=== PATIENT | female | born 1940 | race Caucasian/White ===

== ENCOUNTER 2020-04-19 14:26 | Inpatient (IN) | payer MEDICARE, OTHER ==
[~2020-04-19] VITALS: Ht 165.1 cm; Wt 61.7 kg
--- NOTE | 2020-04-19 14:26 | NUR ---
BIB FAMILY C/O WEAKNESS, INCREASE CONFUSION X 3 DAYS, TO ER BED 9, HOOKED TO MONITOR, CHANGED TO HOSP GOWN, WARM BLANKET PROVIDED. PATIENT AAO x1. BREATHING EVEN AND UNLABORED. R SIDED WEAKNESS NOTED. AWAITING MD MONROE.
--- NOTE | 2020-04-19 15:14 | NUR ---
DR VILLEGAS AT BEDSIDE
--- NOTE | 2020-04-19 15:25 | NUR ---
CLINICAL FACULTY AT BEDSIDE
[2020-04-19 15:46] LABS: BASOPHILS % (AUTO) 0.2 % (0.0-2.0); EOSINOPHILS % (AUTO) 0.8 % (0.0-6.0); HEMATOCRIT 31 % (33-45); HEMOGLOBIN 10.1 g/dL (11.5-14.8); LYMPHOCYTES # (AUTO) 0.8 /CMM (0.8-4.8); LYMPHOCYTES % (AUTO) 6.7 % (20.0-44.0); MEAN CORPUSCULAR HGB CONC 33 g/dl (31.0-36.0); MEAN CORPUSCULAR VOLUME 96 fL (82-100); MONOCYTES % (AUTO) 8.3 % (2.0-12.0); NEUTROPHILS # (AUTO) 9.7 /CMM (1.8-8.9); PLATELET COUNT (AUTO) 304 /CMM (150-450); RED BLOOD CELL COUNT(AUTO) 3.21 MIL/uL (4.0-5.2); WHITE BLOOD COUNT (AUTO) 11.5 K/uL (4.3-11.0)
[2020-04-19] MEDS ORDERED: LOSA50TA39 PO (15:53)
[2020-04-19] MEDS ORDERED: QUET200T PO (15:53)
[2020-04-19] MEDS ORDERED: MEGE400O5 PO (15:53)
[2020-04-19] MEDS ORDERED: METO25TA3 PO (15:53)
[2020-04-19] MEDS ORDERED: TRAZ-257 PO (15:53)
[2020-04-19] MEDS ORDERED: ESCI10TA PO (15:53)
[2020-04-19] MEDS ORDERED: CICL6.6S5 TP (15:53)
[2020-04-19] MEDS ORDERED: ATOR10TA PO (15:53)
[2020-04-19] MEDS ORDERED: ERGO500014 PO (15:53)
[2020-04-19] MEDS ORDERED: LORA-259 PO (15:53)
[2020-04-19] MEDS ORDERED: MEMA10TA PO (15:53)
[2020-04-19] MEDS ORDERED: CLON0.1T PO (15:53)
[2020-04-19] MEDS ORDERED: NAPR-1009 PO (15:53)
[2020-04-19] MEDS ORDERED: RISP0.2515 PO (15:53)
[2020-04-19] MEDS ORDERED: QUET50TA PO (15:53)
--- NOTE | 2020-04-19 16:40 | NUR ---
ADMITTING ORDERS RECEIVED FROM DR MARC
[2020-04-19] MEDS ORDERED: IV NS 0.9% 1,000 ML IV ONE (17:00)
--- NOTE | 2020-04-19 17:05 | NUR ---
TELEPHONE CONSENT RECEIVED FROM DAUGHTER MARY FLOWERS FOR CLOSED REDUCTION OF RIGHT SHOULDER DISLOCATION UNDER MODERATE SEDATION
[2020-04-19 17:09] LABS: BILIRUBIN,URINE Negative (NEGATIVE); BLOOD, URINE Negative Ery/uL (NEGATIVE); COLOR,URINE YELLOW (YELLOW); LEUKOCYTE ESTERASE ,URINE Trace (NEGATIVE); NITRITE, URINE Negative (NEGATIVE); PH,URINE 6.5 (5.0-8.0); PROTEIN,URINE 100 mg/dl (NEGATIVE); UGLUCOSE Negative (NEGATIVE); UROBILINOGEN,URINE 0.2 EU/dL (0.2)
[2020-04-19] MEDS ORDERED: PROPOFOL 20 ML IV ONE (17:12)
[2020-04-19 17:17] LABS: BACTERIA,URINE Few /HPF (None Seen); RBC,URINE NONE SEEN /HPF (0-2); SQUAMOUS EPITHELIAL CELL,UR Few /HPF (None Seen)
[2020-04-19 17:19] LABS: ALANINE AMINOTRANSFERASE 18 U/L (12-78); ALBUMIN 3.2 g/dL (3.4-5.0); ALKALINE PHOSPHATASE 83 U/L (46-116); ASPARTATE AMINOTRANSFERASE 24 U/L (15-37); BILIRUBIN,DIRECT 0.3 mg/dL (0.0-0.2); BILIRUBIN,TOTAL 0.7 mg/dL (0.2-1.0); CALCIUM, SERUM 9.1 mg/dL (8.5-10.1); CARBON DIOXIDE 25 mmol/L (21-32); CHLORIDE 107 mmol/L (98-107); CREATININE 0.9 mg/dL (0.6-1.3); GLUCOSE 180 mg/dL (74-106); LIPASE 61 U/L (73-393); POTASSIUM 4.1 mmol/L (3.5-5.1); SODIUM SERUM 143 mmol/L (136-145); TOTAL PROTEIN, SERUM 7.6 g/dL (6.4-8.2); UREA NITROGEN, BLOOD 30 mg/dL (7-18)
[2020-04-19] MEDS ORDERED: PROPOFOL 200 MG/20 ML VIAL IV ONE ×2 (17:30→18:30)
--- NOTE | 2020-04-19 17:37 | NUR ---
ER MD, RN, RT AND SENIOR PROPERTY MANAGER AT BEDSIDE FOR PROCEDURE
--- NOTE | 2020-04-19 17:50 | NUR ---
CALLED DR. KAYODE NAVARRO ON-CALL [phone]. TRANSFERRED CALL TO DR. VILLEGAS.
--- NOTE | 2020-04-19 17:53 | NUR ---
PATIENT REACTS TO TACTILE STIMULI, OPENS EYES. HOOKED TO MONITOR, VSS. WILL CONTINUE TO MONITOR ACCORDINGLY
--- NOTE | 2020-04-19 17:56 | NUR ---
DR. MARC PAGED, AWAITING FOR CALL BACK.
--- NOTE | 2020-04-19 18:11 | NUR ---
DR. MARC CALLED BACK, TRANSFERRED CALL TO DR. VILLEGAS.
--- NOTE | 2020-04-19 18:58 | NUR ---
CALLED LAB FOR COVID SWAB.
--- NOTE | 2020-04-19 19:08 | NUR ---
CALLED STAT LAB REGARDING COVID SWAB.
--- NOTE | 2020-04-19 19:13 | NUR ---
LISA SWABBNED, SENT TO LAB.
--- NOTE | 2020-04-19 19:19 | NUR ---
REPORT GIVEN TO CRISTIAN POLLARD FOR DIANE
--- NOTE | 2020-04-19 19:28 | NUR ---
TOOK OVER PT CARE. PT AAOX1. ON FORESTRY HUNTER AND PULSE OX. VSS. JON MARC MD ORDERS IN CHART, PT WILL BE ADMITTED, AWAITING COVID SWAB.
--- NOTE | 2020-04-19 19:35 | NUR ---
CALLED NURSING SUP FOR BED
--- NOTE | 2020-04-19 19:35 | NUR ---
CALLED NURSING SUP FOR BED
--- NOTE | 2020-04-19 19:39 | NUR ---
[phone] [facility]
--- NOTE | 2020-04-19 19:41 | NUR ---
SPOKE TO THE FAMILY REGARDING ADMISSION, AWARE OF PT BEING ADMITTED.
--- NOTE | 2020-04-19 20:10 | NUR ---
BED ASSIGNMENT 309-2
--- NOTE | 2020-04-19 20:16 | NUR ---
REPORT GIVEN TO RICO POLLARD FOR DIANE. SPOKE TO THE SON REGARDING PLAN OF CARE. WAS TOLD SHE TAKES SERAQUEL 100MG BEFORE SLEEPING/
[2020-04-19 20:55] VITALS: BP_SYST 126; BP_SYST 150; BP_DIAS 66; BP_DIAS 77
--- NOTE | 2020-04-19 20:57 | NUR ---
PT TRANSFERED PER ACLS PROTOCOL
--- NOTE | 2020-04-19 21:00 | NUR ---
CHILD DEVELOPMENT ASSOCIATE TEACHERELECTRICAL & INSTRUMENTATION SUPERVISOR/OPENING NOTES PATIENT ARRIVED TO UNIT VIA GURNEY, ACCOMPANIED BY 2 ER STAFF; PATIENT A/OX1-2, CONFUSED; ANGOLAN SPEAKING; BREATHING EVEN AND UNLABORED, TOLERATING ROOM AIR WELL; NO SOB NOTED; R SHOULDER DISLOCATION NOTED, PATIENT HAS R SHOULDER IMMOBILIZER ON; PATIENT SKIN INTACT; SPOKE WITH SON AND DAUGHTER REGARDING PATIENT HISTORY; TELE MONITOR ATTACHED, READS SINUS RHYTHM 80S; PATIENT ORIENTED TO UNIT AND STAFF; SAFETY PRECAUTIONS IMPLEMENTED; BED LOCKED IN LOW POSITION; SIDE RAILX2; CALL LIGHT WITHIN REACH; WILL CONT TO MONITOR
--- NOTE | 2020-04-19 22:31 | NUR ---
SENIOR PUBLICATIONS SPECIALIST NOTES ON THE PHONE WITH SONDEANNA REGARDING PATIENTS MEDICAL HISTORY; MEDICAL HISTORY OBTAINED; PER SON, ADMIN FLU AND PNEUMO VACCINES
[2020-04-19] MEDS ORDERED: HYDROCODONE/APAP 5/325MG TABLET PO PRN (23:00)
[2020-04-19] MEDS ORDERED: ACETAMINOPHEN 325 MG TABLET PO PRN (23:00)
[2020-04-19] MEDS ORDERED: ONDANSETRON HCL/PF 4 MG/2 ML VIAL IV PRN (23:00)
[2020-04-19] MEDS ORDERED: PANTOPRAZOLE 40 MG VIAL IV SCH (23:00)
[2020-04-19] MEDS: IV D5/0.45 NACL 1,000 ML IV PRN (23:05)
[2020-04-20] VITALS: BP_SYST 148; BP_SYST 150; BP_DIAS 75; BP_DIAS 77
[2020-04-20] MEDS: CEFTRIAXONE 1 G in IV D5W 50 ML IV SCH (01:39)
[2020-04-20] MEDS ORDERED: CEFTRIAXONE 1 G VIAL IM SCH (02:00)
[2020-04-20] MEDS ORDERED: CEFTRIAXONE 1 G VIAL IV SCH (02:00)
--- NOTE | 2020-04-20 03:30 | NUR ---
MAT MAKER NOTES PATIENT RESTING IN BED COMFORTABLY, EASILY AWAKENS/RESPONDS TO NAME; PATIENT IS TUNISIAN SPEAKING AND CONFUSED; PATIENT HAS LIMITED CZECH BUT ABLE TO FOLLOW COMMANDS; WILL CONT TO MONITOR
[2020-04-20 04:00] VITALS: BP 154/74
[2020-04-20 06:26] LABS: BASOPHILS % (AUTO) 0.2 % (0.0-2.0); EOSINOPHILS % (AUTO) 1.7 % (0.0-6.0); HEMATOCRIT 27 % (33-45); HEMOGLOBIN 9.2 g/dL (11.5-14.8); LYMPHOCYTES # (AUTO) 0.9 /CMM (0.8-4.8); MEAN CORPUSCULAR HGB CONC 34 g/dl (31.0-36.0); MEAN CORPUSCULAR VOLUME 94 fL (82-100); MONOCYTES # (AUTO) 0.7 /CMM (0.1-1.30); MONOCYTES % (AUTO) 7.9 % (2.0-12.0); NEUTROPHILS # (AUTO) 7.5 /CMM (1.8-8.9); NEUTROPHILS % (AUTO) 80.2 % (43.0-81.0); PLATELET COUNT (AUTO) 266 /CMM (150-450); RED BLOOD CELL COUNT(AUTO) 2.88 MIL/uL (4.0-5.2); WHITE BLOOD COUNT (AUTO) 9.3 K/uL (4.3-11.0)
--- NOTE | 2020-04-20 06:29 | NUR ---
LIBRARY CATALOGING TECHNICIAN CLOSING NOTES PATIENT RESTING IN BED COMFORTABLY; A/OX1-2, PERSIAN SPEAKING, CONFUSED; BREATHING EVEN AND UNLABORED; TOLERATING ROOM AIR WELL; NO SOB NOTED; NO DISTRESS NOTED; TELE MONITOR READS SINUS RHYTHM 70S; L AC #20 INTACT AND PATENT, TOLERATING D51/2 NS @ 75ML/HR; SAFETY IMPLEMENTED; BED LOCKED IN LOW POSITION; SIDE RAILSX2; CALL LIGHT WITHIN REACH; WILL ENDORSE DIANE TO ONCOMING SHIFT
[2020-04-20 06:52] LABS: CALCIUM, SERUM 8.3 mg/dL (8.5-10.1); CREATININE 0.6 mg/dL (0.6-1.3); MAGNESIUM 1.9 mg/dL (1.8-2.4); POTASSIUM 3.8 mmol/L (3.5-5.1)
--- NOTE | 2020-04-20 07:30 | NUR ---
PUDDLER PILE DRIVING NOTES PT IN BED, RESTING, AWAKE, ALERT AND ORIENTED, NO SIGN OF PAIN, NO FACIAL GRIMACING, BREATHING PATTERN NORMAL, CALL LIGHT WITHIN REACH, IV FLUIDS INFUSING WELL, KEPT WARM AND COMFORTABLE.
[2020-04-20 08:00] VITALS: BP 153/76
[2020-04-20] MEDS: ENOXAPARIN SODIUM 30 MG/0.3 ML DISP.SYRIN SQ SCH (09:00)
[2020-04-20] MEDS: PANTOPRAZOLE 40 MG TABLET.DR PO SCH (09:19)
[2020-04-20] MEDS ORDERED: CLONIDINE HCL 0.1 MG TABLET PO PRN (11:00)
[2020-04-20] MEDS ORDERED: LORAZEPAM 1 MG TABLET PO PRN (11:00)
[2020-04-20] MEDS ORDERED: TRAZODONE 50 MG TABLET PO PRN (11:30)
[2020-04-20 12:00] VITALS: BP 145/75
[2020-04-20] MEDS: VALSARTAN 80 MG TABLET PO SCH (12:55)
[2020-04-20] MEDS: SOD FERRIC GLUC 125 MG in IV NS 0.9% 100 ML IV SCH (14:52)
[2020-04-20 15:19] LABS: THYROID STIMULATING HORMONE 0.749 uIU/mL (0.358-3.74)
[2020-04-20 16:00] VITALS: BP 146/76
[2020-04-20] MEDS ORDERED: Medication Not On Formulary EA (Memantine Hcl (Namenda) 10 MG) PO SCH (17:00)
[2020-04-20] MEDS: MEMANTINE HCL 5 MG TABLET PO SCH (17:07)
[2020-04-20] MEDS: risperiDONE 0.25 MG TABLET PO SCH (17:07)
[2020-04-20] MEDS: QUETIAPINE FUMARATE 100 MG TABLET PO SCH (17:07)
--- NOTE | 2020-04-20 19:00 | NUR ---
LANDSCAPE CONTRACTOR NOTES PT IN BED, AWAKE, ALERT TO SELF, WITH CONFUSION, NO SIGN OF PAIN OR DISTRESS, IV FLUIDS INFUSING WELL, CALL LIGHT WITHIN REACH, ASSISTED WITH MEALS, PM CARE PROVIDED, DUE MEDS GIVEN ORDERED, SEEN BY DR. MARC TODAY, ORDERS GIVEN, NOTED AND CARRIED OUT, KEPT WARM AND COMFORTABLE IN BED.
--- NOTE | 2020-04-20 19:46 | NUR ---
LICENSED EMBALMER OPENING NOTES RECEIVED PATIENT RESTING IN BED COMFORTABLY; A/OX1-2, CONFUSED; URUGUAYAN SPEAKING; TOLERATING ROOM AIR WELL; BREATHING EVEN AND UNLABORED; NO SOB NOTED; NO DISTRESS NOTED; TELE MONITOR READS SINUS RHYTHM 80S; L AC #20 INTACT AND PATENT, TOLERATING IVF WELL; SAFETY PRECAUTIONS IMPLEMENTED; BED LOCKED IN LOW POSITION; SIDE RAILSX2; CALL LIGHT WITHIN REACH; WILL CONT TO MONITOR
[2020-04-20 20:00] VITALS: BP 119/60
[2020-04-20] MEDS: MUPIROCIN OINT 2% 22 GM TUBE NS SCH (20:14)
[2020-04-20] MEDS ORDERED: ATORVASTATIN 10 MG TABLET PO SCH (22:00)
[2020-04-21] VITALS: BP 146/86
[2020-04-21] MEDS: CEFTRIAXONE 1 G in IV D5W 50 ML IV SCH (01:13)
[2020-04-21] MEDS: IV D5/0.45 NACL 1,000 ML IV PRN (01:18)
--- NOTE | 2020-04-21 03:00 | NUR ---
WAFER POLISHING LEAD WORKER NOTES PATIENT ABLE TO TOLERATE SLIGHT REPOSITIONING/CHANGING; PATIENT UNABLE TO TOLERATE MOVING TOWARDS RIGHT SIDE D/T R SHOULDER DISLOCATION; PATIENT CONFUSED, MARSHALLESE SPEAKING; WILL CONT TO MONITOR
[2020-04-21 04:00] VITALS: BP 137/74
[2020-04-21 06:10] LABS: BASOPHILS % (AUTO) 0.4 % (0.0-2.0); EOSINOPHILS % (AUTO) 1.4 % (0.0-6.0); HEMATOCRIT 27 % (33-45); HEMOGLOBIN 9.2 g/dL (11.5-14.8); LYMPHOCYTES # (AUTO) 1.1 /CMM (0.8-4.8); LYMPHOCYTES % (AUTO) 14.3 % (20.0-44.0); MEAN CORPUSCULAR HGB CONC 34 g/dl (31.0-36.0); MEAN CORPUSCULAR VOLUME 93 fL (82-100); MONOCYTES # (AUTO) 0.7 /CMM (0.1-1.30); MONOCYTES % (AUTO) 8.7 % (2.0-12.0); NEUTROPHILS % (AUTO) 75.2 % (43.0-81.0); PLATELET COUNT (AUTO) 312 /CMM (150-450); RED BLOOD CELL COUNT(AUTO) 2.94 MIL/uL (4.0-5.2)
[2020-04-21 06:15] LABS: CALCIUM, SERUM 8.6 mg/dL (8.5-10.1); CARBON DIOXIDE 23 mmol/L (21-32); CHLORIDE 105 mmol/L (98-107); CREATININE 0.5 mg/dL (0.6-1.3); GLUCOSE 108 mg/dL (74-106); MAGNESIUM 2.1 mg/dL (1.8-2.4); POTASSIUM 3.8 mmol/L (3.5-5.1); SODIUM SERUM 139 mmol/L (136-145); UREA NITROGEN, BLOOD 19 mg/dL (7-18)
--- NOTE | 2020-04-21 06:45 | NUR ---
SALES PRODUCT MANAGER CLOSING NOTES PATIENT RESTING IN BED COMFORTABLE, AWAKE A/OX1, GAMBIAN SPEAKING, CONFUSED; PATIENT OFTEN SEEN MUMBLING TO HERSELF; BREATHING EVEN AND UNLABORED; TOLERATING ROOM AIR WELL; NO SOB NOTED; NO DISTRESS NOTED; TELE MONITOR READS SINUS RHYTHM; R SHOULDER IMMOBILIZER PRESENT; L AC #20 INFUSING DS1/2NS @ 75ML/HR, TOLERATING IVF WELL; ALL NEEDS RENDERED; SAFETY PRECAUTIONS IMPLEMENTED; BED LOCKED IN LOW POSITION; SIDE RAILSX2; CALL LIGHT WITHIN REACH; WILL ENDORSE DIANE TO ONCOMING SHIFT
--- NOTE | 2020-04-21 07:45 | NUR ---
RN OPENING NOTE THE PATIENT IS RECEIVED IN BED. PATIENT IS ALERT AND ORIENTED TO SELF. DENIES PAIN. RECEIVING OXYGEN AT 2L/MIN VIA NC AND IN NO APPARENT DISTRESS. RESPIRATION REGULAR AND UNLABORED. THE PATIENT`S RIGHT ARM IN A SLING. NO S/S POOR CIRCULATION NOTED. RAC G 20 PATENT AND SALINE LOCKED. BED LOW AND LOCKED. SIDE RAILS UP X3. CALL LIGHT WITHIN REACH. WILL CONTINUE TO MONITOR.
[2020-04-21 08:00] VITALS: BP 144/75
[2020-04-21] MEDS ORDERED: LOSARTAN POTASSIUM 50 MG TABLET PO SCH (09:00)
[2020-04-21] MEDS ORDERED: Medication Not On Formulary EA (Quetiapine Fumarate (Seroquel) 50 MG) PO SCH (09:00)
[2020-04-21] MEDS ORDERED: MEGESTROL ACETATE PO SCH (09:00)
[2020-04-21] MEDS ORDERED: [UNRECOGNIZED DRUG - OTHER] PO SCH (09:00)
[2020-04-21] MEDS ORDERED: VALSARTAN 80 MG TABLET ONE (09:03)
[2020-04-21] MEDS: QUETIAPINE FUMARATE 25 MG TABLET PO SCH (09:20)
[2020-04-21] MEDS: PANTOPRAZOLE 40 MG TABLET.DR PO SCH (09:21)
[2020-04-21] MEDS: VALSARTAN 80 MG TABLET PO SCH ×2 (09:21→09:39)
[2020-04-21] MEDS: MEMANTINE HCL 5 MG TABLET PO SCH ×2 (09:22→17:56)
[2020-04-21] MEDS: ESCITALOPRAM OXALATE (10 MG) 10 MG TABLET PO SCH (09:22)
[2020-04-21] MEDS: METOPROLOL SUCCINATE 25 MG TAB.SR.24H PO SCH (09:23)
[2020-04-21] MEDS: MEGESTROL ACETATE SUSP 400 MG/10 ML UDC PO SCH (09:23)
[2020-04-21] MEDS: ENOXAPARIN SODIUM 30 MG/0.3 ML DISP.SYRIN SQ SCH (09:24)
[2020-04-21] MEDS: MUPIROCIN OINT 2% 22 GM TUBE NS SCH ×2 (09:43→21:09)
[2020-04-21] MEDS: CYANOCOBALAMIN 1,000 MCG/ML VIAL SQ SCH (09:43)
--- NOTE | 2020-04-21 09:44 | NUR ---
RN DIOVAN 80 MG DIOVAN 80 MG DUE AT 0903 IS NOT ADMINISTERED BECAUSE PER PHARMACY IT IS AN OVERRIDE ORDER AND NOT AN ACTUAL ORDER. THE ACTUAL ORDER IS DIOVAN 160 MG THAT NEEDS TO BE GIVEN AT THIS TIME. SO, GAVE DIOVAN 160 MG PO TO THE PATIENT.
[2020-04-21] MEDS ORDERED: SOD FERRIC GLUC 125 MG in IV NS 0.9% 100 ML IV SCH (14:00)
[2020-04-21] MEDS: SOD FERRIC GLUC 125 MG in IV NS 0.9% 100 ML IV SCH (15:17)
[2020-04-21 16:00] VITALS: BP 146/77
[2020-04-21] MEDS: QUETIAPINE FUMARATE 100 MG TABLET PO SCH (17:56)
[2020-04-21] MEDS: risperiDONE 0.25 MG TABLET PO SCH (17:56)
--- NOTE | 2020-04-21 18:44 | NUR ---
RN CLOSING NOTE THE PATIENT IS ALERT AND ORIENTED X1. RECEIVING OXYGEN AT 2L/MIN VIA NASAL CANNULA AND SATURATIONS IS AT 95%. DENIES SOB. RESPIRATION REGULAR AND UNLABORED. DENIES PAIN. THE PATIENT IS IN NO APPARENT DISTRESS. LEFT WRIST G 20 PATENT AND D5 1/2 NS INFUSING AT 75ML/HR AND NO S/S INFILTRATION NOTED. TELE BOX READING IS SR 81. RIGHT ARM IN THE SLING. NO S/S POOR CIRCULATION NOTED. THE PATIENT IS IN NO APPARENT DISTRESS. BED LOW AND LOCKED. SIDE RAILS UP X3. CALL LIGHT WITHIN REACH. WILL ENDORSE TO MUNITIONS HANDLER.
--- NOTE | 2020-04-21 19:55 | NUR ---
LOCKER OPERATOR NOTES PATIENT IN BED, AWAKE, ALERT AND ORIENTED X 1. ETHIOPIAN SPEAKING. BREATHING EVEN AND UNLABORED ON ROOM AIR. SHOWS NO SIGNS OF ACUTE RESPIRATORY DISTRESS. NO ACUTE PAIN. TELE MONITOR SR. ON R ARM SLING WITH NO S/S OF POOR CIRCULATION. IV ON L WRIST 2OG RUNNING D5 1/2 NS AT 75ML/HR. SHOWS NO SIGNS OF INFILTRATION, NO REDNESS. SAFETY PRECAUTIONS IN PLACE. BED IN LOWEST POSITION, LOCKED, AND CALL LIGHT KEPT WITHIN REACH. WILL CONTINUE TO MONITOR.
[2020-04-21 20:00] VITALS: BP 122/67
[2020-04-22] VITALS: BP 130/70
[2020-04-22] MEDS: CEFTRIAXONE 1 G in IV D5W 50 ML IV SCH (01:07)
[2020-04-22 04:00] VITALS: BP 140/69
--- NOTE | 2020-04-22 06:42 | NUR ---
CALCULUS TUTOR NOTES PATIENT IN BED, ASLEEP, ALERT AND ORIENTED X 1. [place] SPEAKING ONLY. BREATHING EVEN AND UNLABORED ON ROOM AIR. SHOWS NO SIGNS OF ACUTE RESPIRATORY DISTRESS. NO ACUTE PAIN. TELE MONITOR SR. ON R ARM SLING WITH NO S/S OF POOR CIRCULATION. IV ON L WRIST 2OG RUNNING D5 1/2 NS AT 75ML/HR. SHOWS NO SIGNS OF INFILTRATION, NO REDNESS. ALL DUE MEDICATIONS GIVEN. ALL NEEDS ATTENED TO. KEPT NPO FOR POSS. SURGERY. SAFETY PRECAUTIONS IN PLACE. BED IN LOWEST POSITION, LOCKED, AND CALL LIGHT KEPT WITHIN REACH. WILL ENDORSE TO ONCOMING NURSE.
[2020-04-22 06:46] LABS: BASOPHILS % (AUTO) 0.4 % (0.0-2.0); EOSINOPHILS % (AUTO) 1.5 % (0.0-6.0); HEMATOCRIT 27 % (33-45); HEMOGLOBIN 9.1 g/dL (11.5-14.8); LYMPHOCYTES % (AUTO) 16.3 % (20.0-44.0); MEAN CORPUSCULAR HGB CONC 34 g/dl (31.0-36.0); MEAN CORPUSCULAR VOLUME 93 fL (82-100); MONOCYTES # (AUTO) 0.6 /CMM (0.1-1.30); MONOCYTES % (AUTO) 9.8 % (2.0-12.0); NEUTROPHILS # (AUTO) 4.4 /CMM (1.8-8.9); PLATELET COUNT (AUTO) 320 /CMM (150-450); RED BLOOD CELL COUNT(AUTO) 2.94 MIL/uL (4.0-5.2); WHITE BLOOD COUNT (AUTO) 6.1 K/uL (4.3-11.0)
[2020-04-22 06:53] LABS: CALCIUM, SERUM 8.6 mg/dL (8.5-10.1); CREATININE 0.6 mg/dL (0.6-1.3); MAGNESIUM 2.1 mg/dL (1.8-2.4); POTASSIUM 3.5 mmol/L (3.5-5.1)
[2020-04-22] MEDS: IV D5/0.45 NACL 1,000 ML IV PRN (07:11)
[2020-04-22] MEDS: PANTOPRAZOLE 40 MG TABLET.DR PO SCH (07:30)
[2020-04-22 08:00] VITALS: BP 151/78
--- NOTE | 2020-04-22 08:07 | NUR ---
BREAKFAST BAR ATTENDANT NOTE PATIENT IN BED RESTING COMFORTABLY. PATIENT IN NO ACUTE DISTRESS. NO SOB NOTED. PATIENT BREATHING IS EVEN AND UNLABORED. PATIENT ON CARDIAC MONITORING READING SINUS RHYTHM HR 66. PATIENT KEPT NPO FOR POSSIBLE SURGERY IN AM. PATIENT BED ALARM IS ON. SAFETY PRECAUTIONS IN PLACE. PATIENT BED IS LOCKED AND IN LOWEST POSITION. CALL LIGHT WITHIN REACH. WILL CONTINUE TO MONITOR.
[2020-04-22] MEDS: VALSARTAN 80 MG TABLET PO SCH (09:00)
[2020-04-22] MEDS: METOPROLOL SUCCINATE 25 MG TAB.SR.24H PO SCH (09:00)
[2020-04-22] MEDS: ESCITALOPRAM OXALATE (10 MG) 10 MG TABLET PO SCH (09:00)
[2020-04-22] MEDS: ENOXAPARIN SODIUM 30 MG/0.3 ML DISP.SYRIN SQ SCH (09:00)
[2020-04-22] MEDS: MEMANTINE HCL 5 MG TABLET PO SCH ×2 (09:00→17:35)
[2020-04-22] MEDS: MEGESTROL ACETATE SUSP 400 MG/10 ML UDC PO SCH (09:00)
[2020-04-22] MEDS: QUETIAPINE FUMARATE 25 MG TABLET PO SCH (09:00)
--- NOTE | 2020-04-22 09:30 | NUR ---
AIRCRAFT ORDNANCE TECHNICIAN NOTE SPOKE WITH DR. OSORIO REGARDING PATIENT HAVING SURGERY FOR ANTERIOR DISLOCATION RIGHT SHOULDER. PER DR. OSORIO HE MIGHT SEE PATIENT LATER IF HE CAN SCHEDULE PATIENT TODAY. PER DR. OSORIO HE WILL INFORM ME IN THE AFTERNOON IF PATIENT IS TO HAVE SURGERY. PER DR. OSORIO HE NEEDS TO KNOW HOW LONG SHOULDER WAS DISLOCATED FOR AND WILL WAIT FOR THAT WELL. PER DR. OSORIO KEEP PATIENT NPO AT THIS TIME.
[2020-04-22] MEDS: CYANOCOBALAMIN 1,000 MCG/ML VIAL SQ SCH (10:23)
[2020-04-22] MEDS: MUPIROCIN OINT 2% 22 GM TUBE NS SCH ×2 (10:23→21:49)
[2020-04-22] MEDS: SOD FERRIC GLUC 125 MG in IV NS 0.9% 100 ML IV SCH (14:48)
--- NOTE | 2020-04-22 15:35 | NUR ---
LIGHTOUT EXAMINER NOTE SPOKE WITH DR. OSORIO REGARDING POSSIBLE PATIENT SHOULDER SURGERY FOR TODAY. INFORMED HIM THAT DAUGHTER MARY STATED PATIENT HAD SHOULDER POPPED OUT ABOUT A LITTLE MORE THAN A MONTH AGO. PER DR. OSORIO HE WILL SPEAK WITH DAUGHTER IF SURGICAL INTERVENTION IS STILL REQUIRED. PER DR. OSORIO PATIENT CAN EAT TONIGHT AND KEEP NPO AFTER MIDNIGHT IN CASE FOR POSSIBLE SURGERY TOMORROW.
[2020-04-22 16:00] VITALS: BP 156/81
[2020-04-22] MEDS: risperiDONE 0.25 MG TABLET PO SCH (17:35)
[2020-04-22] MEDS: QUETIAPINE FUMARATE 100 MG TABLET PO SCH (17:36)
--- NOTE | 2020-04-22 19:09 | NUR ---
CARTOON DESIGNER NOTE PATIENT IN BED RESTING COMFORTABLY. PATIENT IN NO ACUTE DISTRESS. NO SOB NOTED. PATIENT BREATHING IS EVEN AND UNLABORED. PATIENT ON CARDIAC MONITORING READING SINUS RHYTHM HR 69. PATIENT TO BE NPO AFTER MIDNIGHT FOR POSSIBLE SURGERY PER DR. OSORIO. PATIENT KEPT CLEAN, DRY, AND COMFORTABLE THROUGHOUT SHIFT.PATIENT BED ALARM IS ON. SAFETY PRECAUTIONS IN PLACE. PATIENT BED IS LOCKED AND IN LOWEST POSITION. CALL LIGHT WITHIN REACH. WILL ENDORSE CARE TO PM SHIFT FOR DIANE.
--- NOTE | 2020-04-22 20:00 | NUR ---
RN NOTES RECEIVED PT. AWAKE ON BED, A/OX2, BURKINAN SPEAKING ,WITH RIGHT SHOULDER SLING NOT IN DISTRESS, NO PAIN NOTED, SIDERAILSUPX2. BED IN LOW POSITION,CONTINUE TO MONITOR
[2020-04-23] MEDS: CEFTRIAXONE 1 G in IV D5W 50 ML IV SCH (02:02)
[2020-04-23] MEDS: IV D5/0.45 NACL 1,000 ML IV PRN ×2 (03:46→17:42)
--- NOTE | 2020-04-23 06:45 | NUR ---
RN NOTES SLEEPING BUT AROUSABLE, NOT IN DISTRESS, NO PAIN NOTED. SIDERAILSUPC2, MORNING CARE RENDERED, PT. NEEDS ATTENDED
[2020-04-23 07:10] LABS: *SPE A/G RATIO 0.7 (0.7-1.7); *SPE ALBUMIN 2.4 g/dL (2.9-4.4); *SPE ALPHA-1-GLOBULIN 0.5 g/dL (0.0-0.4); *SPE ALPHA-2-GLOBULIN 0.9 g/dL (0.4-1.0); *SPE BETA GLOBULIN 0.9 g/dL (0.7-1.3); *SPE GLOBULIN, TOTAL 3.4 g/dL (2.2-3.9); *SPE M-SPIKE Not Observed g/dL (Not Observed)
--- NOTE | 2020-04-23 07:15 | NUR ---
MS RN NOTES PATIENT IN BED EYES CLOSED, EASY TO AROUSE. NO ACUTE DISTRESS NOTED. NO SOB NOTED. NO FACIAL GRIMACING NOTED. IV ACCESS PATENT AND INTACT, NO REDNESS, NO SWELLING NOTED. HEAD OF BED ELEVATED. SAFETY MEASURES IN PLACE. CALL LIGHT WITHIN REACH. WILL CONTINUE TO MONITOR ACCORDINGLY.
[2020-04-23] MEDS: PANTOPRAZOLE 40 MG TABLET.DR PO SCH (07:30)
[2020-04-23 08:00] VITALS: BP 155/80
[2020-04-23] MEDS: ENOXAPARIN SODIUM 30 MG/0.3 ML DISP.SYRIN SQ SCH (09:00)
[2020-04-23] MEDS: QUETIAPINE FUMARATE 25 MG TABLET PO SCH (09:00)
[2020-04-23] MEDS: METOPROLOL SUCCINATE 25 MG TAB.SR.24H PO SCH (09:00)
[2020-04-23] MEDS: VALSARTAN 80 MG TABLET PO SCH (09:00)
[2020-04-23] MEDS: ESCITALOPRAM OXALATE (10 MG) 10 MG TABLET PO SCH (09:00)
[2020-04-23] MEDS: MEGESTROL ACETATE SUSP 400 MG/10 ML UDC PO SCH (09:00)
[2020-04-23] MEDS: MEMANTINE HCL 5 MG TABLET PO SCH ×2 (09:00→17:00)
[2020-04-23] MEDS: CYANOCOBALAMIN 1,000 MCG/ML VIAL SQ SCH (09:26)
[2020-04-23] MEDS: MUPIROCIN OINT 2% 22 GM TUBE NS SCH ×2 (09:26→21:35)
[2020-04-23] MEDS: SOD FERRIC GLUC 125 MG in IV NS 0.9% 100 ML IV SCH (14:46)
--- NOTE | 2020-04-23 15:30 | NUR ---
MS RN NOTES DR MARC TO CALL FAMILY, DAUGHTER REGARDING SURGERY.
[2020-04-23 16:00] VITALS: BP 158/81
[2020-04-23] MEDS: QUETIAPINE FUMARATE 100 MG TABLET PO SCH (18:00)
[2020-04-23] MEDS: risperiDONE 0.25 MG TABLET PO SCH (18:00)
--- NOTE | 2020-04-23 19:00 | NUR ---
MS RN NOTES PATIENT IN BED ALERT ORIENTED X1. NO ACUTE DISTRESS NOTED. NO SOB NOTED. NO FACIAL GRIMACING NOTED. IV ACCESS PATENT AND INTACT, NO REDNESS, NO SWELLING NOTED. HEAD OF BED ELEVATED. NEEDS ATTENDED AND ANTICIPATED. SAFETY MEASURES IN PLACE. CALL LIGHT WITHIN REACH. WILL ENDORSE TO NIGHT NURSE FOR CONTINUITY OF CARE.
--- NOTE | 2020-04-23 19:24 | NUR ---
MS RN NOTES PATIENT IN BED, AWAKE, ALERT AND ORIENTED X 1. BREATHING EVEN AND UNLABORED ON ROOM AIR. SHOWS NO SIGNS OF ACUTE RESPIRATORY DISTRESS, NO ACUTE PAIN. IV ON L WRIST 20G RUNNING D5 1/2 NS AT 75ML/HR. SHOWS NO SIGNS OF INFILTRATION, NO REDNESS. R SHOULDER DISPLACED WITH SLING. SAFETY PRECAUTIONS IN PLACE. BED IN LOWEST POSITION, LOCKED, AND CALL LIGHT KEPT WITHIN REACH. WILL CONTINUE TO MONITOR.
[2020-04-23 20:00] VITALS: BP 159/91
[2020-04-23 20:35] VITALS: BP 159/91
[2020-04-24] MEDS: CEFTRIAXONE 1 G in IV D5W 50 ML IV SCH (01:16)
--- NOTE | 2020-04-24 06:46 | NUR ---
MS RN NOTES PATIENT IN BED, WITH INTERMITTENT SLEEP, ALERT AND ORIENTED X 1. BREATHING EVEN AND UNLABORED ON ROOM AIR. SHOWS NO SIGNS OF ACUTE RESPIRATORY DISTRESS, NO ACUTE PAIN. IV ON L WRIST 20G RUNNING D5 1/2 NS AT 75ML/HR. SHOWS NO SIGNS OF INFILTRATION, NO REDNESS. R SHOULDER DISPLACED WITH SLING. KEPT NPO AFTER MIDNIGHT. ALL DUE MEDICATIONS GIVEN. ALL NEEDS ATTENDED TO. SAFETY PRECAUTIONS IN PLACE. BED IN LOWEST POSITION, LOCKED, AND CALL LIGHT KEPT WITHIN REACH. WILL ENDORSE TO ONCOMING NURSE.
[2020-04-24] MEDS: IV D5/0.45 NACL 1,000 ML IV PRN (06:47)
--- NOTE | 2020-04-24 07:23 | NUR ---
RN MS OPENING NOTES RECEIVED PATIENT RESTING IN BED, A/OX 1, CONFUSED. ON RA, BREATHING EVEN AND UNLABORED WITH NO S/S OF ACUTE RESPIRATORY DISTRESS, NO S/S OF PAIN NOTED, IV ON L WRIST #20G PATENT AND INTACT WITH NO REDNESS OR SWELLING NOTED. RT SHOULDER DISPLACED WITH SLING IN PLACE. BED IS AT LOWEST POSITION, LOCKED, AND CALL LIGHT KEPT WITHIN REACH. WILL CONTINUE TO MONITOR PATIENT THROUGH OUT SHIFT
[2020-04-24] MEDS: PANTOPRAZOLE 40 MG TABLET.DR PO SCH (07:30)
[2020-04-24 08:00] VITALS: BP 159/85
[2020-04-24] MEDS: METOPROLOL SUCCINATE 25 MG TAB.SR.24H PO SCH (09:00)
[2020-04-24] MEDS: MEGESTROL ACETATE SUSP 400 MG/10 ML UDC PO SCH (09:00)
[2020-04-24] MEDS: MEMANTINE HCL 5 MG TABLET PO SCH ×2 (09:00→17:15)
[2020-04-24] MEDS: CYANOCOBALAMIN 1,000 MCG/ML VIAL SQ SCH (09:00)
[2020-04-24] MEDS: ESCITALOPRAM OXALATE (10 MG) 10 MG TABLET PO SCH (09:00)
[2020-04-24] MEDS: ENOXAPARIN SODIUM 30 MG/0.3 ML DISP.SYRIN SQ SCH (09:00)
[2020-04-24] MEDS: MUPIROCIN OINT 2% 22 GM TUBE NS SCH ×2 (09:00→21:32)
[2020-04-24] MEDS: QUETIAPINE FUMARATE 25 MG TABLET PO SCH (09:00)
[2020-04-24] MEDS: VALSARTAN 80 MG TABLET PO SCH (09:00)
[2020-04-24] MEDS: AMLODIPINE BESYLATE 5 MG TABLET PO SCH (10:24)
[2020-04-24] MEDS: SOD FERRIC GLUC 125 MG in IV NS 0.9% 100 ML IV SCH (14:00)
[2020-04-24 16:00] VITALS: BP 110/64
[2020-04-24] MEDS: QUETIAPINE FUMARATE 100 MG TABLET PO SCH (17:15)
[2020-04-24] MEDS: risperiDONE 0.25 MG TABLET PO SCH (17:15)
--- NOTE | 2020-04-24 19:25 | NUR ---
MS RN NOTE: PATIENT RESTING IN BED, NO ACUTE DISTRESS NOTED. BREATHING EVEN AND UNLABORED, NO SOB NOTED. IV TO LEFT WRIST IN PLACE. BED LOCKED AND IN LOWEST POSITION, CALL LIGHT IN REACH, WILL CONTINUE TO MONITOR.
--- NOTE | 2020-04-24 19:26 | NUR ---
RN MS CLOSING NOTES PATIENT RESTING IN BED, A/OX 1, CONFUSED. ON RA, BREATHING EVEN AND UNLABORED WITH NO S/S OF ACUTE RESPIRATORY DISTRESS, NO S/S OF PAIN NOTED, IV ON L WRIST #20G PATENT AND INTACT WITH NO REDNESS OR SWELLING NOTED. RT SHOULDER DISPLACED WITH SLING IN PLACE. BED IS AT LOWEST POSITION, LOCKED, AND CALL LIGHT KEPT WITHIN REACH. WILL ENDORSE TO ONCOMING SHIFT.
[2020-04-24 20:00] VITALS: BP 102/61
[2020-04-25] MEDS: CEFTRIAXONE 1 G in IV D5W 50 ML IV SCH (01:24)
--- NOTE | 2020-04-25 03:30 | NUR ---
MS RN NOTE: PATIENT SLEEPING IN BED, NO ACUTE DISTRESS NOTED. BREATHING EVEN AND UNLABORED, NO SOB NOTED. IV TO LEFT WRIST IN PLACE. BED LOCKED AND IN LOWEST POSITION, CALL LIGHT IN REACH, WILL CONTINUE TO MONITOR.
--- NOTE | 2020-04-25 06:30 | NUR ---
MS RN NOTE: PATIENT RESTING IN BED, NO ACUTE DISTRESS NOTED. BREATHING EVEN AND UNLABORED, NO SOB NOTED. IV TO LEFT WRIST IN PLACE. BED LOCKED AND IN LOWEST POSITION, CALL LIGHT IN REACH, WILL ENDORSE TO DAY NURSE TO CONTINUE WITH PLAN OF CARE.
[2020-04-25 08:00] VITALS: BP 154/84
[2020-04-25] MEDS: PANTOPRAZOLE 40 MG TABLET.DR PO SCH (08:58)
[2020-04-25] MEDS: ESCITALOPRAM OXALATE (10 MG) 10 MG TABLET PO SCH (08:59)
[2020-04-25] MEDS: MEGESTROL ACETATE SUSP 400 MG/10 ML UDC PO SCH (08:59)
[2020-04-25] MEDS: VALSARTAN 80 MG TABLET PO SCH (08:59)
[2020-04-25] MEDS: MEMANTINE HCL 5 MG TABLET PO SCH ×2 (08:59→17:30)
[2020-04-25] MEDS: AMLODIPINE BESYLATE 5 MG TABLET PO SCH (08:59)
[2020-04-25] MEDS: QUETIAPINE FUMARATE 25 MG TABLET PO SCH (09:00)
[2020-04-25] MEDS: METOPROLOL SUCCINATE 25 MG TAB.SR.24H PO SCH (09:00)
[2020-04-25] MEDS: CYANOCOBALAMIN 1,000 MCG/ML VIAL SQ SCH (09:02)
[2020-04-25] MEDS: ENOXAPARIN SODIUM 30 MG/0.3 ML DISP.SYRIN SQ SCH (09:03)
[2020-04-25] MEDS: MUPIROCIN OINT 2% 22 GM TUBE NS SCH ×2 (09:04→21:43)
[2020-04-25 16:00] VITALS: BP 117/64
[2020-04-25] MEDS: risperiDONE 0.25 MG TABLET PO SCH (17:31)
[2020-04-25] MEDS: QUETIAPINE FUMARATE 100 MG TABLET PO SCH (17:31)
--- NOTE | 2020-04-25 18:11 | NUR ---
RN MS CLOSING NOTES PATIENT RESTING IN BED, A/OX 1, CONFUSED, AND DROWSY. PATIENT ON RA, BREATHING EVEN AND UNLABORED WITH NO S/S OF ACUTE RESPIRATORY DISTRESS, NO S/S OF PAIN NOTED, IV ON L WRIST #20G PATENT AND INTACT WITH NO REDNESS OR SWELLING NOTED. RT SHOULDER DISPLACED WITH SLING IN PLACE. PATIENT AWAITING D/C TO HOME WITH HH VS HOPSICE. BED IS AT LOWEST POSITION, LOCKED, AND CALL LIGHT KEPT WITHIN REACH. WILL ENDORSE TO ONCOMING SHIFT.
--- NOTE | 2020-04-25 20:23 | NUR ---
MS RN OPENING NOTES: RECEIVED PATIENT IN BED, AWAKE, NO COMPLAINS OF PAIN OR DISCOMFORT THIS TIME. PATIENT APPEARS CLAM, QUIET, NO FACIAL GRIMACE NOTED. NOT IN RESPIRATORY DISTRESS. VITAL SIGNS NOTED TO BE STABLE. SAFETY AND FALL PRECAUTIONS OBSERVED.WILL ADMINISTER ORDERED MEDICATIONS. WILL CONTINUE TO MONITOR PATIENT.
[2020-04-25 20:54] VITALS: BP 103/63
[2020-04-26] MEDS: CEFTRIAXONE 1 G in IV D5W 50 ML IV SCH (02:09)
[2020-04-26] MEDS: PANTOPRAZOLE 40 MG TABLET.DR PO SCH (06:43)
--- NOTE | 2020-04-26 06:52 | NUR ---
MS RN CLOSING NOTES: PATIENT RESTING IN BED COMFORTABLE, NO ACUTE EVENTS IN THIS SHIFT. ADMINISTERED ALL SCHEDULED MEDICATIONS FOR THIS SHIFT. SAFETY AND FALL PRECAUTIONS KEPT. BED ALARM ON. PATIENT IS ALERT AND ORIENTED X1. WILL ENDORSE PATIENT TO DAY SHIFT NURSE.
--- NOTE | 2020-04-26 07:45 | NUR ---
RN OPENING NOTE: RECEIVED PT LYING IN BED. NO ACUTE DISTRESS N OTED. PT A+OX1, ABLE TO MAKE BASIC NEEDS KNOWN. PRIMARILY ARMENTIAN SPEAKING. RIGHT SHOULDER IN SLING. STABLE ON RA. COMPLIANT WITH MEDICATIONS AND PLAN OF CARE.LEFT WRIST SL. PATENT, NO S/SX OF INFLITRATION AND OR S/SX ON INFECTION NOTED. CALM AND COOPERATIVE. BED IN LOW AND LOCKED POSITION WITH SIDE RAILS UP X 2. ASSISTED WITH REPOSITIONING FOR SKIN INTEGRITY AND COMFORT. WILL CONT TO MONITOR
[2020-04-26 08:00] VITALS: BP 142/77
[2020-04-26] MEDS: VALSARTAN 80 MG TABLET PO SCH (08:48)
[2020-04-26] MEDS: MEMANTINE HCL 5 MG TABLET PO SCH ×2 (08:49→17:53)
[2020-04-26] MEDS: QUETIAPINE FUMARATE 25 MG TABLET PO SCH (08:49)
[2020-04-26] MEDS: METOPROLOL SUCCINATE 25 MG TAB.SR.24H PO SCH (08:49)
[2020-04-26] MEDS: AMLODIPINE BESYLATE 5 MG TABLET PO SCH (08:50)
[2020-04-26] MEDS: MEGESTROL ACETATE SUSP 400 MG/10 ML UDC PO SCH (08:53)
[2020-04-26] MEDS: ESCITALOPRAM OXALATE (10 MG) 10 MG TABLET PO SCH (08:53)
[2020-04-26] MEDS: MUPIROCIN OINT 2% 22 GM TUBE NS SCH ×2 (09:05→20:32)
[2020-04-26] MEDS: CYANOCOBALAMIN 1,000 MCG/ML VIAL SQ SCH (09:05)
[2020-04-26] MEDS: ENOXAPARIN SODIUM 30 MG/0.3 ML DISP.SYRIN SQ SCH (09:08)
[2020-04-26 16:00] VITALS: BP 125/65
--- NOTE | 2020-04-26 16:20 | NUR ---
RN NOTE COVID-[address] ORDERED PER DR MARC FOR DISCHARGE REASON. NOTED AND CARRIED OUT. ALSO, RECEIVED AN ORDER FOR CHEST XRAY AND D-DIMER. THE ORDERS ARE READ BACK, VERIFIED. NOTED AND CARRIED OUT. Addendum: 04/26/20 at 1624 by PRETTY GOMEZ RN RN NOTE WRONG PATIENT ENTRY REGARDING THE CHEST X-RAY AND D-DIMER. "ALSO, RECEIVED AN ORDER FOR CHEST XRAY AND D-DIMER. THE ORDERS ARE READ BACK, VERIFIED. NOTED AND CARRIED OUT".
[2020-04-26] MEDS: QUETIAPINE FUMARATE 100 MG TABLET PO SCH (17:52)
[2020-04-26] MEDS: ENSURE ENLIVE CHOC 237 ML CAN PO SCH (17:53)
[2020-04-26] MEDS: risperiDONE 0.25 MG TABLET PO SCH (17:53)
--- NOTE | 2020-04-26 19:20 | NUR ---
MS RN OPENING NOTE PATIENT AWAKE IN BED. A/OX1; PRIMARY LANGUAGE KYRGYZ. STABLE ON RA; NO S/S OF ACUTE RESPIRATORY DISTRESS; BREATHING IS EVEN AND UNLABORED. NO S/S OF PAIN NOTED. RIGHT ARM SLING PRESENT. IV PRESENT ON LEFT WRIST, SIZE 20, INTACT & PATENT WITH NS RUNNING TKO. SAFETY MEASURES IN PLACE AND PATIENT'S NEEDS MET. BED LOCKED, HOB ELEVATED, SIDE RAILS X3, CALL LIGHT WITHIN REACH. WILL CONTINUE TO MONITOR.
[2020-04-26 20:00] VITALS: BP 113/64
[2020-04-27] MEDS: CEFTRIAXONE 1 G in IV D5W 50 ML IV SCH (02:17)
--- NOTE | 2020-04-27 07:44 | NUR ---
MS RN CLOSING NOTES PATIENT SLEEPING, EASY TO AWAKEN. A/OX1. ON RA; NO S/S OF ACUTE RESPIRATORY DISTRESS; BREATHING IS EVEN AND UNLABORED. NO S/S OF PAIN NOTED. RIGHT ARM SLING REMAINS IN PLACE. IV PRESENT ON LEFT WRIST, SIZE 20, INTACT & PATENT WITH NS RUNNING TKO. SAFETY MEASURES IN PLACE AND PATIENT'S NEEDS MET. BED LOCKED, HOB ELEVATED, SIDE RAILS X3, CALL LIGHT WITHIN REACH. ENDORSED TO DAY SHIFT RN PLAN OF CARE.
[2020-04-27 08:00] VITALS: BP 117/69
[2020-04-27] MEDS: ENSURE ENLIVE CHOC 237 ML CAN PO SCH (08:11)
[2020-04-27] MEDS: PANTOPRAZOLE 40 MG TABLET.DR PO SCH (08:23)
[2020-04-27] MEDS: MEGESTROL ACETATE SUSP 400 MG/10 ML UDC PO SCH (08:53)
[2020-04-27] MEDS: METOPROLOL SUCCINATE 25 MG TAB.SR.24H PO SCH (08:54)
[2020-04-27] MEDS: QUETIAPINE FUMARATE 25 MG TABLET PO SCH (08:54)
[2020-04-27 08:55] VITALS: BP 117/69
[2020-04-27] MEDS: ESCITALOPRAM OXALATE (10 MG) 10 MG TABLET PO SCH (08:55)
[2020-04-27] MEDS: VALSARTAN 80 MG TABLET PO SCH (08:55)
[2020-04-27] MEDS: AMLODIPINE BESYLATE 5 MG TABLET PO SCH (08:55)
[2020-04-27] MEDS: ENOXAPARIN SODIUM 30 MG/0.3 ML DISP.SYRIN SQ SCH (08:57)
[2020-04-27] MEDS: MEMANTINE HCL 5 MG TABLET PO SCH (08:59)
[2020-04-27] MEDS: CYANOCOBALAMIN 1,000 MCG/ML VIAL SQ SCH (09:02)
[2020-04-27] MEDS: MUPIROCIN OINT 2% 22 GM TUBE NS SCH (09:15)
== END 2020-04-27 16:15 | disposition hospice, home (50) | DRG 871 ==
LOC: ER 14:30 → TELE 20:16 → MED 04-22 12:49
PROVIDERS: ADMIT Legal Medicine; ATTEND Legal Medicine
DX: A41.9 Sepsis, unspecified organism (principal); G93.41 Metabolic encephalopathy; E43 Unspecified severe protein-calorie malnutrition; N17.9 Acute kidney failure, unspecified; N39.0 Urinary tract infection, site not specified; E78.5 Hyperlipidemia, unspecified; D64.9 Anemia, unspecified; I10 Essential (primary) hypertension; S43.014A Anterior dislocation of right humerus, initial encounter; X58.XXXA Exposure to other specified factors, initial encounter; Y92.9 Unspecified place or not applicable; Z20.828 Contact with and (suspected) exposure to other viral communicable diseases; Z79.899 Other long term (current) drug therapy; F03.90 Unspecified dementia, unspecified severity, without behavioral disturbance, psychotic disturbance, mood disturbance, and anxiety; Z51.5 Encounter for palliative care; E11.9 Type 2 diabetes mellitus without complications
CPT/HCPCS: 36415; 70450-TC; 71045-TC; 73020; 73560-TC; 80048-TC; 80076-TC; 81001; 82728-TC; 82962-TC; 83540-TC; 83690-TC; 83735-TC; 84155; 84165; 84439-TC; 84443-TC; 84484-TC; 85025-TC; 85730-TC; 86850-TC; 87081-TC; 87086-TC; 93307-TC; 97110-TC; 97116-TC; 97530-TC; C9803; G0378; G0500; J0696; J1650; J2704; J2916; J3420; J3490; J7030; J7042; J7060

== ENCOUNTER 2020-12-14 15:45 | Inpatient (IN) | payer MEDICARE, OTHER ==
[~2020-12-14] VITALS: Ht 162.6 cm; Wt 55.8 kg
[~2020-12-14 15:45] MED LIST: ATOR10TA PO; CICL6.6S5 TP; CLON0.1T PO; ERGO500093 PO; ESCI10TA PO; LORA-259 PO; LOSA50TA39 PO; MEGE400O5 PO; MEMA10TA PO; METO25TA3 PO; NAPR-1009 PO; QUET200T PO; QUET50TA PO; RISP0.2515 PO; TRAZ-257 PO
--- NOTE | 2020-12-14 16:00 | NUR ---
TO ER BED 4 FROM BOARD AND CARE, FAMILY REPORTED PATIENT STARING AT BLANK, ATTACHED TO MONITOR, SEEN BY
[2020-12-14] MEDS ORDERED: DOCU-141 PO (16:14)
[2020-12-14] MEDS ORDERED: ACET-868 PO (16:14)
--- NOTE | 2020-12-14 16:25 | NUR ---
COVID SWAB DONE AND SENT TO LAB
--- NOTE | 2020-12-14 16:30 | NUR ---
URINE COLLECTED AND SENT TO LAB
[2020-12-14 16:44] LABS: BILIRUBIN,URINE Negative (NEGATIVE); COLOR,URINE YELLOW (YELLOW); LEUKOCYTE ESTERASE ,URINE Trace (NEGATIVE); NITRITE, URINE Negative (NEGATIVE); PROTEIN,URINE Negative (NEGATIVE); UGLUCOSE Negative (NEGATIVE); UROBILINOGEN,URINE 0.2 EU/dL (0.2)
[2020-12-14 16:46] LABS: BACTERIA,URINE Few /HPF (None Seen); RBC,URINE NONE SEEN /HPF (0-2); SQUAMOUS EPITHELIAL CELL,UR Few /HPF (None Seen)
[2020-12-14 16:57] LABS: BASOPHILS % (AUTO) 0.4 % (0.0-2.0); EOSINOPHILS % (AUTO) 0.7 % (0.0-6.0); HEMATOCRIT 34 % (33-45); HEMOGLOBIN 11.6 g/dL (11.5-14.8); LYMPHOCYTES # (AUTO) 1.4 K/uL (0.8-4.8); MEAN CORPUSCULAR HGB CONC 34 g/dl (31.0-36.0); MEAN CORPUSCULAR VOLUME 93 fL (82-100); MONOCYTES # (AUTO) 0.9 K/uL (0.1-1.30); MONOCYTES % (AUTO) 7.7 % (2.0-12.0); NEUTROPHILS # (AUTO) 9.1 K/uL (1.8-8.9); NEUTROPHILS % (AUTO) 79.2 % (43.0-81.0); PLATELET COUNT (AUTO) 457 K/uL (150-450); RED BLOOD CELL COUNT(AUTO) 3.66 MIL/uL (4.0-5.2); WHITE BLOOD COUNT (AUTO) 11.5 K/uL (4.3-11.0)
--- NOTE | 2020-12-14 17:04 | NUR ---
BROUGHT TO CT
[2020-12-14 17:08] LABS: CALCIUM, SERUM 8.4 mg/dL (8.5-10.1); CARBON DIOXIDE 23 mmol/L (21-32); CHLORIDE 102 mmol/L (98-107); CREATININE 0.6 mg/dL (0.6-1.3); GLUCOSE 163 mg/dL (74-106); POTASSIUM 4.1 mmol/L (3.5-5.1); SODIUM SERUM 135 mmol/L (136-145); UREA NITROGEN, BLOOD 16 mg/dL (7-18)
[2020-12-14 17:28] LABS: ALANINE AMINOTRANSFERASE 26 U/L (12-78); ALKALINE PHOSPHATASE 66 U/L (46-116); ASPARTATE AMINOTRANSFERASE 24 U/L (15-37); BILIRUBIN,DIRECT 0.2 mg/dL (0.0-0.2); BILIRUBIN,TOTAL 0.5 mg/dL (0.2-1.0); TOTAL PROTEIN, SERUM 7.1 g/dL (6.4-8.2)
--- NOTE | 2020-12-14 18:19 | NUR ---
CALLED DR. MARC [phone] LEFT MS TO CALL US BACK.
[2020-12-14] MEDS ORDERED: CEFTRIAXONE 1GM BAG (ER ONLY) 50 ML IV ONE (18:24)
[2020-12-14] MEDS ORDERED: NS 0.9% IV ONE (18:30)
[2020-12-14] MEDS ORDERED: CEFTRIAXONE 1 G in IV D5W 50 ML IV ONE (18:30)
--- NOTE | 2020-12-14 18:50 | NUR ---
WHEELED PT VIA PAMELA ACCOMPANIED BY EMT AND RN. RN AT BEDSIDE TO ASSUME CARE
[2020-12-14 19:30] VITALS: BP 139/85
--- NOTE | 2020-12-14 19:30 | NUR ---
Admission note Admitted to [facility] room 308-2 dx acute encephalopathy and severe sepsis. Blood and urine culture done in ER as well as Rocephin IV x1. Patient is alert and blinks will look towards noises is responsive to touch as well. Not oriented. Initial VS BP 139/85, Temp 99.1, HR 95, RR 20, O2 sat 100% on RA. heart rate regular. lung sounds clear. bowel sounds active. Contracted x4 extremities. Incontinent. Urine appears yellow and clear. Tolerating IV fluids well. On puree diet, order for ST consult as well. Scaled over abrasions to R shoulder and L armpit noted. Redness noted to side of L foot. Will continue to monitor.
[2020-12-14] MEDS ORDERED: DOCUSATE SODIUM 100 MG CAPSULE PO PRN (20:30)
[2020-12-14] MEDS ORDERED: ACETAMINOPHEN 325 MG TABLET PO PRN (20:30)
[2020-12-14] MEDS ORDERED: METOPROLOL SUCCINATE 25 MG TAB.SR.24H PO PRN (20:30)
[2020-12-14] MEDS ORDERED: LORAZEPAM 0.5 MG TABLET PO PRN (21:00)
--- NOTE | 2020-12-14 21:30 | NUR ---
Reported critical lab to Dr. Mello Lactic acid 2.2 still. said to continue IVF as ordered.
[2020-12-14] MEDS: QUETIAPINE FUMARATE 25 MG TABLET PO SCH (23:43)
[2020-12-15] MEDS ORDERED: ONDANSETRON HCL/PF 4 MG/2 ML VIAL IV PRN (00:30)
--- NOTE | 2020-12-15 02:15 | NUR ---
Called supervisor contact and service clerks about no DVT pumps on the unit and that 2 pumps for admits are needed. Specimen Boss stated he would call back when he gets a chance to get them.
--- NOTE | 2020-12-15 06:24 | NUR ---
Patient slept well throughout night after seroquel administration though easy to wake. Patient is responsive to noise and touch but is not oriented just making sounds. Continues on IVF. No indicators of pain. Turned q2h, kept clean and dry. VSS. All safety measures in place.
[2020-12-15 06:43] LABS: BASOPHILS % (AUTO) 0.4 % (0.0-2.0); HEMATOCRIT 31 % (33-45); HEMOGLOBIN 10.9 g/dL (11.5-14.8); LYMPHOCYTES # (AUTO) 1.4 K/uL (0.8-4.8); MEAN CORPUSCULAR HGB CONC 36 g/dl (31.0-36.0); MEAN CORPUSCULAR VOLUME 93 fL (82-100); MONOCYTES # (AUTO) 0.7 K/uL (0.1-1.30); MONOCYTES % (AUTO) 8.5 % (2.0-12.0); NEUTROPHILS % (AUTO) 73.1 % (43.0-81.0); PLATELET COUNT (AUTO) 392 K/uL (150-450); RED BLOOD CELL COUNT(AUTO) 3.29 MIL/uL (4.0-5.2); WHITE BLOOD COUNT (AUTO) 8.2 K/uL (4.3-11.0)
[2020-12-15 08:00] VITALS: BP 133/65
--- NOTE | 2020-12-15 08:10 | NUR ---
WOUND CARE CONSULT: PT PRESENTS WITH LOWER EXTREMITY CONTRACTURES, INTACT DEEP T ISSUE INJURIES TO LEFT LATERAL ANKLE/FOOT AREA, DRY SCAB WITH SCARRING TO RT SHOULDER AND LESION TO LEFT UPPER ARM NEAR AXILLA, ALL PRESENT ON ADMISSION. DEFER TO PMD FOR LEFT UPPER ARM/AXILLA LESION, UNKNOWN ETIOLOGY. RECOMMENDATIONS MADE FOR WOUND CARE AND SKIN PROTECTION. DISCUSSED WITH NURSING STAFF. [facility] BED. PT IS NON COMMUNICATIVE AT THIS TIME. MD IN AGREEMENT WITH PLAN OF CARE. Addendum: 12/15/20 at 0812 by EVERTON GONZALEZ WNDNU Amended: Links added.
--- NOTE | 2020-12-15 08:18 | NUR ---
RN OPENING NOTE- PT IS LETHARGIC DIFFICULTY RESPONDING, MOVES EYES THOUGH SOMNOLENT. IVF INFUSING D5NS@ 70CC/HR. 20G TO LAC. NO INFILTRATION. NO DIFFICULTIES. SAFETY MAINTAINED, SIDE RAILS UP, BRAKE ON LOCK, NEEDS ATTENDED. WOUND CASE RN TO BEDSIDE. ASSESSED WOUNDS. CARE PLAN INITIATED
[2020-12-15] MEDS ORDERED: Z GUARD REMEDY 2 OZ OINT TP PRN (08:30)
[2020-12-15] MEDS: ATORVASTATIN 10 MG TABLET PO SCH (09:34)
[2020-12-15] MEDS: MEMANTINE HCL 5 MG TABLET PO SCH (09:34)
[2020-12-15] MEDS: ESCITALOPRAM OXALATE (10 MG) 10 MG TABLET PO SCH (09:34)
[2020-12-15] MEDS: Z GUARD REMEDY 2 OZ OINT TP SCH (09:35)
[2020-12-15 09:40] LABS: CALCIUM, SERUM 8.1 mg/dL (8.5-10.1); CARBON DIOXIDE 22 mmol/L (21-32); CHLORIDE 110 mmol/L (98-107); CREATININE 0.5 mg/dL (0.6-1.3); GLUCOSE 122 mg/dL (74-106); SODIUM SERUM 142 mmol/L (136-145); UREA NITROGEN, BLOOD 10 mg/dL (7-18)
[2020-12-15] MEDS: ENOXAPARIN SODIUM 30 MG/0.3 ML DISP.SYRIN SQ SCH (10:28)
--- NOTE | 2020-12-15 10:30 | NUR ---
Powder Nipper note: auto specialty services manager consult received for pt from a [facility] facility with wounds and contracted legs. SS will follow up at a later time.
[2020-12-15] MEDS: IV D5/ 0.9% NACL 1,000 ML IV PRN (10:47)
--- NOTE | 2020-12-15 11:00 | NUR ---
RN NOTE - SLIGHT BLEEDING NOTED TO LT EAR AREA ON PILLOW. FURTHER EVALUATION, DETECTED DRIED SERO-SANGUINOUS DRAINAGE TO OUTER EAR CANAL. NO OPEN AREA NOTED. NO DRAINAGE CURRENTLY NOTED. NO PAIN ON PALPATION OF EAR.
--- NOTE | 2020-12-15 12:44 | NUR ---
RN NOTE- WATER SERVER SAW PT AND ASSESSED THIS MORNING. CARE PLAN ADDED BY THIS RN. MEPILEX APPLIED TO LT FOOT AND RT SHOULDER PER INSTRUCTIONS.
[2020-12-15 16:00] VITALS: BP 143/69
--- NOTE | 2020-12-15 19:06 | NUR ---
RN CLOSING NOTE- UNCHANGED. CONTINUES TO BE LETHARGIC DIFFICULTY RESPONDING, MOVES EYES THOUGH SOMNOLENT. IVF INFUSING D5NS@ 70CC/HR. 20G TO LAC. NO INFILTRATION. NO DIFFICULTIES. SAFETY MAINTAINED, SIDE RAILS UP, BRAKE ON LOCK, NEEDS ATTENDED. LOVENOX 30 MG DAILY ADDED TO REGIMEN. AM LABS FOR TOMORROW - BMP, CBC, MAG AND A CXR
--- NOTE | 2020-12-15 19:20 | NUR ---
MS RN OPENING NOTES: RECEIVED PATIENT IN BED, AWAKE, NON VERBAL, NO S/S OF DISTRESS NOTED. CALL LIGHT WITHIN REACH. BED ALARM ON. BED IN LOWEST AND LOCKED POSITION. HEELS OFFLOADED.
[2020-12-15 20:00] VITALS: BP 133/72
[2020-12-15] MEDS: QUETIAPINE FUMARATE 25 MG TABLET PO SCH (22:43)
[2020-12-16] MEDS: IV D5/ 0.9% NACL 1,000 ML IV PRN ×2 (04:11→18:49)
--- NOTE | 2020-12-16 06:11 | NUR ---
MS RN CLOSING NOTES: PATIENT IN BED, AWAKE, NON VERBAL. NO S/S OF DISTRESS NOTED. CALL LIGHT WITHIN REACH. BED ALARM ON. BED IN LOWEST AND LOCKED POSITION.NOT IN PAIN. RESTED THROUGHOUT THE NIGHT. HOB ELEVATED AT ALL TIMES. TURNED AND REPOSITIONED [id number]. HEELS OFFLOADED.
[2020-12-16 06:18] LABS: BASOPHILS % (AUTO) 0.5 % (0.0-2.0); EOSINOPHILS % (AUTO) 1.1 % (0.0-6.0); HEMATOCRIT 31 % (33-45); HEMOGLOBIN 10.6 g/dL (11.5-14.8); LYMPHOCYTES # (AUTO) 1.3 K/uL (0.8-4.8); LYMPHOCYTES % (AUTO) 17.4 % (20.0-44.0); MEAN CORPUSCULAR HGB CONC 34 g/dl (31.0-36.0); MEAN CORPUSCULAR VOLUME 95 fL (82-100); MONOCYTES # (AUTO) 0.7 K/uL (0.1-1.30); MONOCYTES % (AUTO) 8.9 % (2.0-12.0); NEUTROPHILS # (AUTO) 5.6 K/uL (1.8-8.9); NEUTROPHILS % (AUTO) 72.1 % (43.0-81.0); PLATELET COUNT (AUTO) 386 K/uL (150-450); RED BLOOD CELL COUNT(AUTO) 3.28 MIL/uL (4.0-5.2); WHITE BLOOD COUNT (AUTO) 7.7 K/uL (4.3-11.0)
[2020-12-16 06:32] LABS: CALCIUM, SERUM 8.3 mg/dL (8.5-10.1); CARBON DIOXIDE 21 mmol/L (21-32); CHLORIDE 110 mmol/L (98-107); CREATININE 0.5 mg/dL (0.6-1.3); GLUCOSE 115 mg/dL (74-106); POTASSIUM 3.7 mmol/L (3.5-5.1); SODIUM SERUM 141 mmol/L (136-145); UREA NITROGEN, BLOOD 9 mg/dL (7-18)
--- NOTE | 2020-12-16 07:08 | NUR ---
MS RN OPENING NOTES RECEIVE PT AWAKE IN BED AT THIS TIME. NON VERBAL, OPEN EYES, RESPONSE TO LIGHT STIMULUS. NO SOB NOTED, NO S/O OF ANY ACUTE DISTRESS NOTED, NO C/O PAIN AT THIS. BREATHING EVEN AND UNLABORED. PT STABLE ON RA. IV ACCESS IN LAC G#20 AND RIGHT HAND G#22, BOTH , INTACT, PATENT AND FLUSHING WELL. SAFETY PRECAUTIONS IN PLACE AND MAINTAINED AT ALL TIMES. BED IN LOWEST LOCKED POSITION, HOB ELEVATED, SIDE RAILS UP X2, CALL LIGHT AND TABLE WITHIN REACH. WILL CONTINUE TO MONITOR
[2020-12-16 08:00] VITALS: BP 168/88
[2020-12-16] MEDS: MEMANTINE HCL 5 MG TABLET PO SCH (10:01)
[2020-12-16] MEDS: ENOXAPARIN SODIUM 30 MG/0.3 ML DISP.SYRIN SQ SCH (10:01)
[2020-12-16] MEDS: ATORVASTATIN 10 MG TABLET PO SCH (10:02)
[2020-12-16] MEDS: ESCITALOPRAM OXALATE (10 MG) 10 MG TABLET PO SCH (10:02)
[2020-12-16] MEDS: Z GUARD REMEDY 2 OZ OINT TP SCH (10:03)
[2020-12-16 16:00] VITALS: BP 150/73
--- NOTE | 2020-12-16 17:07 | NUR ---
Social Service note: Social Service consultation for wounds. This APPRENTICE COOK is unable to meet with patient, as she is confused and a poor historian. Patient lives in a small board and care. This APPRENTICE COOK spoke with primer charger Silvia, who stated that patient is from a board and care. Flower Buncher Or Picker of the board and care is known to her, as he has been bringing his residence to [facility] for years. Patient is being followed by Dr. Blankenship, and he is aware of patient's condition and care needs. Silvia stated that Dr. Blankenship plans to talk to patient's family about hospice. At this time, no further SS interventions are needed, however social services director will remain available, as needed.
--- NOTE | 2020-12-16 19:05 | NUR ---
RN CLOSING NOTES PATIENT AWAKE IN BED AT THIS TIME. REMAINED STABLE THROUGHOUT SHIFT. ALL CARE, NEEDS, AND MEDICATIONS ADMINISTERED PER ORDER. PT REPOSITIONED Q2H AND PRN. ASPIRATIONS AND SAFETY PRECAUTIONS IN PLACE AND MAINTAINED AT ALL TIMES. BED IN LOWEST LOCKED POSITION, HOB ELEVATED, SIDE RAILS UP X2, CALL LIGHT AND TABLE WITHIN REACH. WILL ENDORSE TO CAR RIDER RN FOR DIANE
--- NOTE | 2020-12-16 19:42 | NUR ---
MS RN NOTES RECEIVE PT AWAKE IN BED AT THIS TIME. NON VERBAL, OPEN EYES, RESPONSE TO LIGHT STIMULUS. NO SOB NOTED, NO S/O OF ANY ACUTE DISTRESS NOTED, NO C/O PAIN AT THIS. BREATHING EVEN AND UNLABORED. PT STABLE ON RA. IV ACCESS IN LAC G#20 AND RIGHT HAND G#22, BOTH , INTACT, PATENT AND FLUSHING WELL. SAFETY PRECAUTIONS IN PLACE AND MAINTAINED AT ALL TIMES. BED IN LOWEST LOCKED POSITION, HOB ELEVATED, SIDE RAILS UP X2, CALL LIGHT AND TABLE WITHIN REACH. WILL CONTINUE TO MONITOR.
[2020-12-16 20:00] VITALS: BP 136/67
[2020-12-16] MEDS: QUETIAPINE FUMARATE 25 MG TABLET PO SCH (22:14)
[2020-12-17] MEDS: IV D5/ 0.9% NACL 1,000 ML IV PRN (05:15)
[2020-12-17 06:06] LABS: BASOPHILS % (AUTO) 0.4 % (0.0-2.0); EOSINOPHILS % (AUTO) 1.3 % (0.0-6.0); HEMATOCRIT 27 % (33-45); HEMOGLOBIN 9.4 g/dL (11.5-14.8); LYMPHOCYTES # (AUTO) 1.4 K/uL (0.8-4.8); LYMPHOCYTES % (AUTO) 19.2 % (20.0-44.0); MEAN CORPUSCULAR HGB CONC 34 g/dl (31.0-36.0); MEAN CORPUSCULAR VOLUME 94 fL (82-100); MONOCYTES # (AUTO) 0.6 K/uL (0.1-1.30); MONOCYTES % (AUTO) 8.8 % (2.0-12.0); NEUTROPHILS % (AUTO) 70.3 % (43.0-81.0); PLATELET COUNT (AUTO) 403 K/uL (150-450); RED BLOOD CELL COUNT(AUTO) 2.93 MIL/uL (4.0-5.2); WHITE BLOOD COUNT (AUTO) 7.1 K/uL (4.3-11.0)
[2020-12-17 06:32] LABS: CALCIUM, SERUM 7.9 mg/dL (8.5-10.1); CARBON DIOXIDE 23 mmol/L (21-32); CHLORIDE 109 mmol/L (98-107); CREATININE 0.4 mg/dL (0.6-1.3); GLUCOSE 91 mg/dL (74-106); MAGNESIUM 1.9 mg/dL (1.8-2.4); POTASSIUM 3.5 mmol/L (3.5-5.1); SODIUM SERUM 140 mmol/L (136-145); UREA NITROGEN, BLOOD 12 mg/dL (7-18)
--- NOTE | 2020-12-17 06:46 | NUR ---
MS RN NOTES PT AWAKE IN BED AT THIS TIME. NON VERBAL, OPEN EYES, RESPONSE TO LIGHT STIMULUS. NO SOB NOTED, NO S/O OF ANY ACUTE DISTRESS NOTED, NO C/O PAIN AT THIS. BREATHING EVEN AND UNLABORED. PT STABLE ON RA. ALL NURSING NEEDS MET THROUGHOUT THE SHIFT. ALL DUE MEDS GIVEN AND TOLERATED WELL. SAFETY PRECAUTIONS IN PLACE AND MAINTAINED AT ALL TIMES. BED IN LOWEST LOCKED POSITION, HOB ELEVATED, SIDE RAILS UP X2, CALL LIGHT AND TABLE WITHIN REACH. WILL ENDORSE CONTINUITY OF CARE TO DAY SHIFT NURSE.
--- NOTE | 2020-12-17 08:00 | NUR ---
m/s baseball coach: notes pt appears to be sleepy, but arousable. pt remains with poor appetite. hob elevated. no distress noted. will continue to monitor.
[2020-12-17 08:06] VITALS: BP 146/70
[2020-12-17] MEDS: ESCITALOPRAM OXALATE (10 MG) 10 MG TABLET PO SCH (08:57)
[2020-12-17] MEDS: ATORVASTATIN 10 MG TABLET PO SCH (08:57)
[2020-12-17] MEDS: ENOXAPARIN SODIUM 30 MG/0.3 ML DISP.SYRIN SQ SCH (08:57)
[2020-12-17] MEDS: MEMANTINE HCL 5 MG TABLET PO SCH (08:57)
--- NOTE | 2020-12-17 08:57 | NUR ---
m/s coke still cleaner: notes pt appears lethargic, not safe for meals/food at this time. Non-oral feeding may benefit the pt at this time per speech therapist recommendation. will inform md when he makes rounds.
[2020-12-17] MEDS: Z GUARD REMEDY 2 OZ OINT TP SCH (10:47)
--- NOTE | 2020-12-17 12:20 | NUR ---
m/s content management consultant: md visit seen and examined by dr. ortiz with verbal order to insert ngt and to start on ngt feeding with dietary consult. orders read back and carried out.
--- NOTE | 2020-12-17 13:10 | NUR ---
m/s chief general pediatric clinic: notes ngt inserted to right nostril, cameron. well. 2 license check for placement and patent. stat chest x-ray ordered for verification of placement. will continue to monitor.
--- NOTE | 2020-12-17 13:22 | NUR ---
m/s station captain: notes stat chest x-ray taken, awaiting for radiologist to review the film for placement.
[2020-12-17] MEDS ORDERED: JEVITY 1.2 CAL 1,000 ML BOTTLE GT PRN (15:00)
[2020-12-17] MEDS ORDERED: PHARMACY TO CHANGE PO MEDS TO GT/NG XX PRN (15:00)
[2020-12-17] MEDS ORDERED: LORAZEPAM 0.5 MG TABLET GT PRN (15:17)
[2020-12-17] MEDS ORDERED: METOPROLOL SUCCINATE 25 MG TAB.SR.24H GT PRN (15:18)
[2020-12-17] MEDS ORDERED: DOCUSATE SODIUM LIQ 100 MG/10 ML UDC GT PRN (15:30)
[2020-12-17 16:52] VITALS: BP 150/72
--- NOTE | 2020-12-17 17:48 | NUR ---
m/s community action worker: notes jevity 1.2 started at 30ml/hr via ngt at this time. noted iv infiltrated to left forearm and removed with tip intact.
--- NOTE | 2020-12-17 18:15 | NUR ---
m/s grinder set up operator external: notes inserted new iv to right wrist/forearm, gauge #22. reality orientation provided prn. will continue to monitor.
--- NOTE | 2020-12-17 18:30 | NUR ---
m/s orientation and mobility specialist: notes dr. ortiz on the phone and informed md pt was started on ngt feeding and ask md if he wants to continue her iv fluids of d5 ns with order to d'c iv fluids. order read back and carried out and acknowledged.
--- NOTE | 2020-12-17 19:15 | NUR ---
MS RN NOTES PT AWAKE IN BED AT THIS TIME. NON VERBAL, OPEN EYES, RESPONSE TO LIGHT STIMULUS. NO SOB NOTED, NO S/O OF ANY ACUTE DISTRESS NOTED, NO C/O PAIN AT THIS. BREATHING EVEN AND UNLABORED. PT NOTED WITH NG TUBE TO RUNNING JEVITY 1.2 @3O ML/HR WITH A GOAL TO REACH 60ML/HR. SAFETY PRECAUTIONS IN PLACE AND MAINTAINED AT THIS TIME. BED IN LOWEST LOCKED POSITION, HOB ELEVATED, ASPIRATION PRECAUTIONS IN PLACE. SIDE RAILS UP X2, CALL LIGHT AND TABLE WITHIN REACH. WILL CONTINUE TO MONITOR.
[2020-12-17 20:00] VITALS: BP 169/79
[2020-12-17 20:33] VITALS: BP 159/79
[2020-12-17] MEDS: QUETIAPINE FUMARATE 25 MG TABLET GT SCH (21:09)
--- NOTE | 2020-12-18 06:28 | NUR ---
MS RN NOTES PT ASLEEP IN BED AT THIS TIME. NON VERBAL, OPEN EYES, RESPONSE TO LIGHT STIMULUS. NO SOB NOTED, NO S/O OF ANY ACUTE DISTRESS NOTED, NO C/O PAIN AT THIS. BREATHING EVEN AND UNLABORED. PT NOTED WITH NG TUBE TO RUNNING JEVITY 1.2 @3O ML/HR WITH A GOAL TO REACH 60ML/HR. SAFETY PRECAUTIONS IN PLACE AND MAINTAINED AT THIS TIME. BED IN LOWEST LOCKED POSITION, HOB ELEVATED, ASPIRATION PRECAUTIONS IN PLACE. SIDE RAILS UP X2, ALL DUE MEDS GIVEN AND TOLERATED WELL. ALL NURSING NEEDS MET THROUGHOUT THE SHIFT. WILL CONTINUE TO MONITOR.
--- NOTE | 2020-12-18 07:37 | NUR ---
MS/RN OPENING NOTES RECEIVED PATIENT ON BED ALERT AND ORIENTED TO SELF NON VERBAL. PATIENT IS ON ROOM AIR SATURATING WELL. PATIENT IN NO APPARENT RESPIRATORY DISTRESS NOTED. PATIENT IS ON CONTINUOUS NGT FEEDING JEVITY 1.2 AT 30 ML/HR RUNNING WELL. WELL CONTINUE TO MONITOR.
[2020-12-18 08:00] VITALS: BP 147/76
[2020-12-18] MEDS: ESCITALOPRAM OXALATE (10 MG) 10 MG TABLET GT SCH (08:45)
[2020-12-18] MEDS: MEMANTINE HCL 5 MG TABLET GT SCH (08:45)
[2020-12-18] MEDS: ATORVASTATIN 10 MG TABLET GT SCH (08:45)
--- NOTE | 2020-12-18 09:00 | NUR ---
RN NOTES ADMINISTERED MEDICATIONS VIA NGT,CHECKED THE NGT, NO RESIDUAL AND WITH POSITIVE GARGLE SOUND.
[2020-12-18] MEDS: ENOXAPARIN SODIUM 30 MG/0.3 ML DISP.SYRIN SQ SCH (09:06)
[2020-12-18] MEDS: Z GUARD REMEDY 2 OZ OINT TP SCH (09:18)
[2020-12-18] MEDS: CYANOCOBALAMIN 1,000 MCG/ML VIAL IM SCH (09:19)
--- NOTE | 2020-12-18 11:55 | NUR ---
MS/RN NOTES PATIENT IS OKAY NOT TO TAKE BY MOUTH PER DR. MARC. NOTED AND CARRIED OUT.
--- NOTE | 2020-12-18 15:00 | NUR ---
RN NOTES INCREASE THE RATE OF NGT FEEDING AT 40ML/HR TOLERATING WELL.
[2020-12-18 16:00] VITALS: BP 156/75
--- NOTE | 2020-12-18 18:53 | NUR ---
MS/RN CLOSING NOTES PATIENT IS ON BED, ALERT AND ORIENTED TO SELF ONLY NONVERBAL. PATIENT IN ROOM AIR SATURATION 99%. PATIENT IN NO APPARENT RESPIRATORY DISTRESS NOTED. NO SIGN AND SYMPTOM OF PAIN NOTED AT THIS TIME. IV ACCESS AT LEFT FOREARM # 20 G PATENT AND INTACT. NGT WAS IN PLACE WITH JEVITY 1.2 AT 40ML/HR RUNNING WELL. SEEN AND EXAMINED BY MD WITH ORDERS MADE AND CARRIED OUT. ALL DUE MEDICATIONS WAS GIVEN. SAFETY PRECAUTIONS WAS IN PLACED. SIDE RAILS UP X2. CALL LIGHT WITHIN REACH. WILL ENDORSED TO DIALYSIS EQUIPMENT TECHNICIAN FOR DIANE.
--- NOTE | 2020-12-18 19:30 | NUR ---
MS RN OPENING NOTES RECEIVED PATIENT IN BED, ON HIGH TIPTON'S POSITION. AWAKE, ALERT OT SELF, IN NO ACUTE DISTRESS NOTED. IV ACCESS ON LFA G#20, PATENT AND FLUSHES WELL. WITH NG TUBE ON RIGHT NARES, ONGOING FEEDING OF JEVITY 1.2 AT 40 CC/HR, TOLERATING WELL. SAFETY PRECAUTIONS OBSERVED: BED ON LOWEST LOCKED POSITION, SIDE RAILS UP X2, CALL LIGHT WITHIN EASY REACH. WILL CONTINUE TO MONITOR.
[2020-12-18 20:00] VITALS: BP 161/100
[2020-12-18] MEDS: QUETIAPINE FUMARATE 25 MG TABLET GT SCH (22:28)
--- NOTE | 2020-12-19 00:17 | NUR ---
RN NOTES RECHECKED BLOOD PRESSURE, RESULT 140/88. CO 90 BPM.
[2020-12-19] MEDS: JEVITY 1.2 CAL 1,000 ML BOTTLE GT PRN (00:32)
[2020-12-19] MEDS: ACETAMINOPHEN 650 MG/20.3 ML UDC GT PRN ×2 (03:10→14:43)
--- NOTE | 2020-12-19 03:10 | NUR ---
RN NOTES PATIENT IS WARM TO TOUCH, CHECKED TEMP, RESULT IS 100.3, TYLENOL GIVEN ORDERED. WILL CONTINUE TO MONITOR PATIENT'S TEMP.
--- NOTE | 2020-12-19 04:13 | NUR ---
RN NOTES RECHECKED PATIENT'S TEMP, RESULT 99.1F.
--- NOTE | 2020-12-19 06:37 | NUR ---
MS RN CLOSING NOTES PATIENT IN BED, ON HIGH TIPTON'S POSITION, ASLEEP, IN NO ACUTE DISTRESS NOTED. IV ACCESS ON RFA G#20, PATENT AND FLUSHES WELL. WITH NG TUBE ON RIGHT NARES, ONGOING FEEDING OF JEVITY 1.2 AT 50 CC/HR, TOLERATING WELL. SAFETY PRECAUTIONS OBSERVED AND MAINTAINED DURING THE SHIFT: BED ON LOWEST LOCKED POSITION, SIDE RAILS UP X2, CALL LIGHT WITHIN EASY REACH.ALL NEEDS ATTENDED AND MET. WILL ENDORSE TO MORNING SHIFT NURSE FOR DIANE.
[2020-12-19 06:44] LABS: BASOPHILS % (AUTO) 0.3 % (0.0-2.0); EOSINOPHILS % (AUTO) 0.9 % (0.0-6.0); HEMATOCRIT 30 % (33-45); HEMOGLOBIN 10.7 g/dL (11.5-14.8); LYMPHOCYTES % (AUTO) 10.4 % (20.0-44.0); MEAN CORPUSCULAR HGB CONC 35 g/dl (31.0-36.0); MEAN CORPUSCULAR VOLUME 91 fL (82-100); MONOCYTES # (AUTO) 0.6 K/uL (0.1-1.30); MONOCYTES % (AUTO) 6.5 % (2.0-12.0); NEUTROPHILS # (AUTO) 7.7 K/uL (1.8-8.9); NEUTROPHILS % (AUTO) 81.9 % (43.0-81.0); PLATELET COUNT (AUTO) 454 K/uL (150-450); RED BLOOD CELL COUNT(AUTO) 3.31 MIL/uL (4.0-5.2); WHITE BLOOD COUNT (AUTO) 9.5 K/uL (4.3-11.0)
[2020-12-19 07:33] LABS: CALCIUM, SERUM 8.6 mg/dL (8.5-10.1); CREATININE 0.6 mg/dL (0.6-1.3)
--- NOTE | 2020-12-19 07:40 | NUR ---
MS RN OPENING NOTES RECEIVED PATIENT IN BED, AWAKE, ALERT TO SELF, IN NO ACUTE DISTRESS NOTED. IV ACCESS ON LFA G#20, PATENT AND FLUSHES WELL. WITH NG TUBE ON RIGHT NARES, WITH ONGOING FEEDING OF JEVITY 1.2 AT 40 CC/HR, TOLERATING WELL. WILL CONTINUE TO MONITOR.
[2020-12-19 08:10] VITALS: BP 189/94
[2020-12-19] MEDS: ESCITALOPRAM OXALATE (10 MG) 10 MG TABLET GT SCH (08:35)
[2020-12-19] MEDS: CYANOCOBALAMIN 1,000 MCG/ML VIAL IM SCH (08:35)
[2020-12-19] MEDS: MEMANTINE HCL 5 MG TABLET GT SCH (08:35)
[2020-12-19] MEDS: ATORVASTATIN 10 MG TABLET GT SCH (08:35)
[2020-12-19 08:40] VITALS: BP 154/71
[2020-12-19] MEDS: ENOXAPARIN SODIUM 30 MG/0.3 ML DISP.SYRIN SQ SCH (08:41)
--- NOTE | 2020-12-19 09:00 | NUR ---
RN NOTES ADMINISTERED MEDICATIONS VIA NGT,CHECKED THE NGT, AUSCULTATION WAS PERFORM AND NO RESIDUAL AND WITH POSITIVE GARGLE SOUND.
--- NOTE | 2020-12-19 09:00 | NUR ---
MS/RN NOTES BP 154/[address] MARC WAS AWARE NO NEW ORDER AT THIS TIME.
[2020-12-19] MEDS: Z GUARD REMEDY 2 OZ OINT TP SCH (09:06)
--- NOTE | 2020-12-19 14:44 | NUR ---
RN NOTES TEMP 100.2 TYLENOL 650MG NGT WAS ADMINISTERED AND COOLING MEASURE WAS APPLIED. WILL CONTINUE TO MONITOR.
--- NOTE | 2020-12-19 14:50 | NUR ---
MS/RN NOTES INITIATED TO INCREASE THE FEEDING RATE. CHECKED NGT PLACEMENT WITH 50ML RESIDUAL. WILL CONTINUE TO MONITOR.
[2020-12-19 16:30] VITALS: BP 148/82
--- NOTE | 2020-12-19 19:04 | NUR ---
MS/RN CLOSING NOTES PATIENT IS ON BED, ALERT AND ORIENTED TO SELF ONLY NONVERBAL. PATIENT IN ROOM AIR SATURATION 98%. PATIENT IN NO APPARENT RESPIRATORY DISTRESS NOTED. NO SIGN AND SYMPTOM OF PAIN NOTED AT THIS TIME. IV ACCESS AT LEFT FOREARM # 20 G PATENT AND INTACT. NGT WAS IN PLACE WITH JEVITY 1.2 AT 40ML/HR RUNNING WELL. SEEN AND EXAMINED BY MD WITH ORDERS MADE AND CARRIED OUT. ALL DUE MEDICATIONS WAS GIVEN. SAFETY PRECAUTIONS WAS IN PLACED. SIDE RAILS UP X2. CALL LIGHT WITHIN REACH. LATEST TEMP 99.3 F. WILL ENDORSED TO TABLET TESTER FOR DIANE.
--- NOTE | 2020-12-19 19:35 | NUR ---
MS RN OPENING NOTES RECEIVED PATIENT IN BED, ASLEEP, EASILY AWAKEN BY VERBAL AND TACTILE STIMULI, ON HIGH TIPTON'S POSITION, IN NO ACUTE DISTRESS NOTED. ON ROOM AIR TOLERATING WELL, NO SOB NOTED. IV ACCESS ON LFA G#20, PATENT AND FLUSHES WELL. WITH NG TUBE ON RIGHT NARES, PATENT AND IN PLACE, ONGOING FEEDING OF JEVITY 1.2 AT 50 CC/HR, TOLERATING WELL. SAFETY PRECAUTIONS OBSERVED: BED ON LOWEST LOCKED POSITION, SIDE RAILS UP X2, CALL LIGHT WITHIN EASY REACH. WILL CONTINUE TO MONITOR.
[2020-12-19 20:00] VITALS: BP 135/74
[2020-12-19] MEDS: QUETIAPINE FUMARATE 25 MG TABLET GT SCH (21:49)
[2020-12-20] MEDS: JEVITY 1.2 CAL 1,000 ML BOTTLE GT PRN ×2 (00:10→21:50)
--- NOTE | 2020-12-20 06:29 | NUR ---
MS RN CLOSING NOTES PATIENT IN BED, ON HIGH TIPTON'S POSITION, ASLEEP, IN NO ACUTE DISTRESS NOTED. IV ACCESS ON RFA G#20, PATENT AND FLUSHES WELL. WITH NG TUBE ON RIGHT NARES, ONGOING FEEDING OF JEVITY 1.2 AT 55 CC/HR, TOLERATING WELL. SAFETY PRECAUTIONS OBSERVED AND MAINTAINED DURING THE SHIFT: BED ON LOWEST LOCKED POSITION, SIDE RAILS UP X2, CALL LIGHT WITHIN EASY REACH.ALL NEEDS ATTENDED AND MET. WILL ENDORSE TO MORNING SHIFT NURSE FOR DIANE.
--- NOTE | 2020-12-20 07:47 | NUR ---
MS RN OPENING NOTES RECEIVED PATIENT IN BED, ASLEEP. PATIENT ON ROOM AIR; BREATHING EVEN AND UNLABORED, NO SOB PRESENT. NO S/S OF PAIN SUCH FACIAL GRIMACING, MOANING OR GUARDING PRESENT. NG-TUBE TO THE R NARIS PRESENT AND INTACT RUNNING JEVITY 1.2 @ 55 MLS/HR. IV ACCESS ON RFA G #20; SL. SAFETY PRECAUTIONS IN PLACE; BED IN LOW POSITION, LOCKED AND HOB ELEVATED AT 45 DEGREES, RAILS UP X2, CALL LIGHT WITHIN REACH. WILL CONTINUE TO MONITOR PATIENT.
[2020-12-20 08:26] VITALS: BP 160/87
[2020-12-20] MEDS: ESCITALOPRAM OXALATE (10 MG) 10 MG TABLET GT SCH (08:52)
[2020-12-20] MEDS: ATORVASTATIN 10 MG TABLET GT SCH (08:53)
[2020-12-20] MEDS: MEMANTINE HCL 5 MG TABLET GT SCH (08:53)
[2020-12-20] MEDS: CYANOCOBALAMIN 1,000 MCG/ML VIAL IM SCH (08:54)
[2020-12-20] MEDS: ENOXAPARIN SODIUM 30 MG/0.3 ML DISP.SYRIN SQ SCH (08:55)
[2020-12-20] MEDS: Z GUARD REMEDY 2 OZ OINT TP SCH (09:07)
[2020-12-20] MEDS: NITROGLYCERIN 30 GM TUBE TP SCH ×2 (13:31→21:19)
[2020-12-20] MEDS: IV D5/ 0.9% NACL 1,000 ML IV PRN (14:53)
[2020-12-20 16:44] VITALS: BP 157/67
--- NOTE | 2020-12-20 19:00 | NUR ---
MS RN CLOSING NOTES PATIENT REMAINS IN BED, OPEN EYES, NON-VERBAL. PATIENT ON ROOM AIR; BREATHING EVEN AND UNLABORED, NO SOB PRESENT. NO S/S OF PAIN SUCH FACIAL GRIMACING, MOANING OR GUARDING PRESENT. NG-TUBE TO THE R NARIS PRESENT AND INTACT RUNNING JEVITY 1.2 @ 55 MLS/HR. IV ACCESS ON RFA G #20; SL. ALL NEEDS ATTENDED DURING THE DAY. SAFETY PRECAUTIONS IN PLACE; BED IN LOW POSITION, LOCKED AND HOB ELEVATED AT 45 DEGREES, RAILS UP X2, CALL LIGHT WITHIN REACH. WILL ENDORSE TO CEMENT PRODUCTION PLANT OPERATOR NURSE.
--- NOTE | 2020-12-20 19:30 | NUR ---
MS RN NOTES PATIENT RECEIVED IN BED, OPEN EYES, NON-VERBAL. PATIENT ON ROOM AIR; BREATHING EVEN AND UNLABORED, NO SOB PRESENT. NO S/S OF PAIN SUCH FACIAL GRIMACING, MOANING OR GUARDING PRESENT. NG-TUBE TO THE R NARIS PRESENT AND INTACT RUNNING JEVITY 1.2 @ 45 MLS/HR. IV ACCESS ON RFA G #20; SL. ALL NEEDS ATTENDED TO AT THIS TIME.. SAFETY PRECAUTIONS IN PLACE; BED IN LOW POSITION, LOCKED AND HOB ELEVATED AT 45 DEGREES, RAILS UP X2, CALL LIGHT WITHIN REACH. WILL CONTINUE TO MONITOR..
[2020-12-20 20:00] VITALS: BP 156/92
[2020-12-20] MEDS: QUETIAPINE FUMARATE 25 MG TABLET GT SCH (21:20)
[2020-12-21] MEDS: IV D5/ 0.9% NACL 1,000 ML IV PRN (05:55)
--- NOTE | 2020-12-21 06:45 | NUR ---
MS RN NOTES PATIENT IN BED, OPEN EYES, NON-VERBAL. PATIENT ON ROOM AIR; BREATHING EVEN AND UNLABORED, NO SOB PRESENT. NO S/S OF PAIN SUCH FACIAL GRIMACING, MOANING OR GUARDING PRESENT. NG-TUBE TO THE R NARIS PRESENT AND INTACT RUNNING JEVITY 1.2 @ 40 MLS/HR. IV ACCESS ON RFA G #20; SL. ALL NEEDS ATTENDED TO AT THIS TIME. ALL DUE MEDS GIVEN AND TOLERATED WELL.SAFETY PRECAUTIONS IN PLACE; BED IN LOW POSITION, LOCKED AND HOB ELEVATED AT 45 DEGREES, RAILS UP X2, CALL LIGHT WITHIN REACH. WILL ENDORSE CARE TO DAY SHIFT NURSE.
[2020-12-21 08:00] VITALS: BP 141/75
[2020-12-21] MEDS: MEMANTINE HCL 5 MG TABLET GT SCH (08:53)
[2020-12-21] MEDS: ESCITALOPRAM OXALATE (10 MG) 10 MG TABLET GT SCH (08:53)
[2020-12-21] MEDS: ENOXAPARIN SODIUM 40 MG/0.4 ML DISP.SYRIN SQ SCH (09:18)
[2020-12-21] MEDS: NITROGLYCERIN 30 GM TUBE TP SCH ×2 (10:14→20:39)
[2020-12-21] MEDS: Z GUARD REMEDY 2 OZ OINT TP SCH (10:14)
[2020-12-21 16:00] VITALS: BP 153/88
--- NOTE | 2020-12-21 18:51 | NUR ---
MS RN CLOSING NOTES PATIENT ON BED, OPENS EYES AND NON-VERBAL. WITH IV ACCESS ON RFA G #20; SLPATIENT ON ROOM AIR; BREATHING EVEN AND UNLABORED, NO SOB PRESENT. WITHOUT S/S OF PAIN SUCH FACIAL GRIMACING, MOANING OR GUARDING PRESENT. NG-TUBE TO THE R NARIS PRESENT AND INTACT RUNNING JEVITY 1.2 @ 40 MLS/HR. . ALL NEEDS ATTENDED DURING THE DAY. SAFETY PRECAUTIONS IN PLACE; BED IN LOWEST LOCKED POSITION AND HOB ELEVATED AT 45 DEGREES, RAILS UP X2, CALL LIGHT WITHIN REACH. WILL ENDORSE TO SUPERVISOR CUSTOMER COMPLAINT SERVICE NURSE FOR DIANE.
--- NOTE | 2020-12-21 19:31 | NUR ---
MS RN NOTES PATIENT ON BED, OPENS EYES AND NON-VERBAL. WITH IV ACCESS ON RFA G #20; PATIENT ON ROOM AIR; BREATHING EVEN AND UNLABORED, NO SOB PRESENT. WITHOUT S/S OF PAIN SUCH FACIAL GRIMACING, MOANING OR GUARDING PRESENT. NG-TUBE TO THE R NARIS PRESENT AND INTACT RUNNING JEVITY 1.2 @ 40 MLS/HR.ALL NEEDS ATTENDED DURING THE DAY. SAFETY PRECAUTIONS IN PLACE; BED IN LOWEST LOCKED POSITION AND HOB ELEVATED AT 45 DEGREES, RAILS UP X2, CALL LIGHT WITHIN REACH. WILL CONTINUE TO MONITOR.
[2020-12-21 20:00] VITALS: BP_SYST 137; BP_SYST 153; BP_DIAS 76; BP_DIAS 86
[2020-12-21] MEDS ORDERED: FUROSEMIDE 40 MG/4 ML VIAL IV SCH ×2 (21:00→21:30)
--- NOTE | 2020-12-21 21:33 | NUR ---
MS POLLARD NOTES PT CHANGE OF CONDITION NOTED WITH USE OF ASSERTORY MUSCLES TO BREATH PT SATURATING AT 88% ON ROOM AIR. PT PUT ON SIMPLE FACE MASK 3L SATURATION AT 90-93% PT SOUNDS CONGESTED. NOTIFIED OF PT C.O.C. DR MARC ORDERED LASIX 40 MG IVP X NOW, STAT CHEST X-RAY AND ABGS HOLD FLUIDS AND TUBE FEEDING FOR NOW.ORDERS NOTED AND CARRIED OUT. WILL CONTINUE TO MONITOR. Addendum: 12/22/20 at 0008 by FILOMENA MORSE RN CORRECTION PT WAS ON A NASAL CANULA
[2020-12-21] MEDS: QUETIAPINE FUMARATE 25 MG TABLET GT SCH (22:00)
[2020-12-21 22:20] LABS: ABG BASE EXCESS 0.5 mmol/L; ABG OXYGEN SATURATION 88.3 % (92.0-98.5); ABG PCO2 28.8 mmHg (35.0-45.0); ABG PH 7.513 (7.350-7.450); ABG PO2 50.6 mmHg (75.0-100.0); AaDO2 172.7 mmHg; COHb 0.5 % (0.5-1.5); MetHb 0.3 % (0.0-1.5); O2Hb 87.6 % (94.0-97.0); SITE, ABG Left Radial; VENT MODE, BG nasal cannula
--- NOTE | 2020-12-21 22:36 | NUR ---
MS RN NOTES RECEIVED CRITICAL RESULTS FOR PT ABGS DR MARC NOTIFIED AND ORDERED D-DIMER STAT. PT HAS NOW BEEN BUT ON A NON REBREATHER DUE TO ABG RESULT AWARE. WILL CONTINUE TO MONITOR.
--- NOTE | 2020-12-21 22:50 | NUR ---
MS RN NOTES HELD 2200 SEROQUEL NGT UNABLE TO BE USED AT THIS TIME PT NGT PLACEMENT WAITING TO BE VERIFIED BY C-X RAY. WILL CONTINUE TO MONITOR.
[2020-12-22] VITALS (28 sets, daily range): BP systolic 83–148; BP diastolic 43–97
--- NOTE | 2020-12-22 00:05 | NUR ---
MS RN NOTES PT WAS STILL SATURATING AT 88 % EVEN ON NON REBREATHER ALL OTHER VITALS STABLE INFORMED DR MARC PER DR MARC TRANSFER PT TO ICU. PT TRANSFERRED PER ACLS PROTOCOL. REPORT GIVEN. NOTED PT BE LONGINGS WERE NOT IN THE ROOM AT TIME OF TRANSFER CHARGE NURSE YASMIN NOTIFIED.
--- NOTE | 2020-12-22 00:10 | NUR ---
EQUIPMENT STERILIZER: RECEIVED PT FROM MED SURG FLOOR DUE TO DESATURATION. ON 15L 02 VIA NON-REBREATHER MASK, TACHYPNEIC. NOTED WT CRACKLES UPON LUNG AUSCULTATION. NT SUCTION RENDERED WT MODERATE AMT. OF THICK [place] SECRETIONS. ST ON TRUCK MECHANIC APPRENTICE. NON-VERBAL, UNABLE TO FOLLOW SIMPLE COMMANDS. BODY ASSESSMENT DONE, BED BATH RENDERED. HOB ON HIGH TIPTON'S. BED IN LOWEST POSITION AND LOCKED, SIDE RAILS UP X2. BED ALARM ON. WILL CONTINUE TO MONITOR.
--- NOTE | 2020-12-22 00:40 | NUR ---
SHERIFFS NOTE RECEIVED PATIENT IN BED LETHARGIC,VERBALLY NOT RESPONSIVE EYES CLOSED ON 15L NON REBREATHER MASK O2:94% ON ICU MONITORING,IV SITE IS ON RIGHT HAND 22 G INTACT PATENT,MEDLEY CATHETER IN PLACE URINE DRAINING YELLOW AND CLEAR CONTINUE TO MONITOR
[2020-12-22 01:34] LABS: ABG BASE EXCESS 0.9 mmol/L; ABG PCO2 32.7 mmHg (35.0-45.0); ABG PH 7.482 (7.350-7.450); ABG PO2 167.5 mmHg (75.0-100.0); AaDO2 512.8 mmHg; COHb 0.3 % (0.5-1.5); MetHb 0.2 % (0.0-1.5); O2Hb 98.5 % (94.0-97.0); SITE, ABG Right Brachial; VENT MODE, BG NRB 15L
--- NOTE | 2020-12-22 01:39 | NUR ---
AUCTIONEER ART: RELAYED EKG RESULT TO DR. MARC WT NEW ORDERS. NOTED AND CARRIED OUT.
[2020-12-22 01:40] LABS: BASOPHILS % (AUTO) 0.1 % (0.0-2.0); HEMATOCRIT 33 % (33-45); LYMPHOCYTES # (AUTO) 0.8 K/uL (0.8-4.8); MEAN CORPUSCULAR HGB CONC 34 g/dl (31.0-36.0); MEAN CORPUSCULAR VOLUME 94 fL (82-100); MONOCYTES # (AUTO) 1.2 K/uL (0.1-1.30); MONOCYTES % (AUTO) 6.6 % (2.0-12.0); NEUTROPHILS # (AUTO) 16.7 K/uL (1.8-8.9); NEUTROPHILS % (AUTO) 89.3 % (43.0-81.0); PLATELET COUNT (AUTO) 448 K/uL (150-450); RED BLOOD CELL COUNT(AUTO) 3.47 MIL/uL (4.0-5.2); WHITE BLOOD COUNT (AUTO) 18.7 K/uL (4.3-11.0)
[2020-12-22] MEDS ORDERED: PIPERACILLIN /TAZOBACTAM 3.375 G VIAL IV ONE (01:48)
--- NOTE | 2020-12-22 01:53 | NUR ---
SYSTEMS INTEGRATION ANALYST: CARDIZEM 10MG IVP GIVEN WT HR STILL ELEVATED. IN AND OUT OF A. FIB. DR. MARC WT ORDER FOR CARDICHER DOMÍNGUEZ.
[2020-12-22] MEDS ORDERED: PIPERACILLIN /TAZOBACTAM 3.375 G in IV D5W 50 ML IV SCH ×2 (02:00→08:00)
[2020-12-22] MEDS ORDERED: DILTIAZEM HCL 50 MG IV IV ONE (02:00)
[2020-12-22] MEDS ORDERED: DILTIAZEM HCL IV 125 MG in IV NS 0.9% 100 ML IV PRN ×2 (02:00→03:30)
--- NOTE | 2020-12-22 02:00 | NUR ---
SACK SEWER MACHINE NOTE CHANGE PATIENT NON REBREATHER MASK 15L TO MASK 10 LITERS PATIENT NOT ABLE TO TOLERATE O2 WENT DOWN TO 88 BACK TO NON REBREATHER MASK 15L CONTINUE TO MONITOR
[2020-12-22 02:04] LABS: CALCIUM, SERUM 8.6 mg/dL (8.5-10.1); CREATININE 0.8 mg/dL (0.6-1.3); POTASSIUM 4.4 mmol/L (3.5-5.1)
[2020-12-22 02:08] LABS: MAGNESIUM 1.7 mg/dL (1.8-2.4); PHOSPHORUS 3.9 mg/dL (2.5-4.9)
[2020-12-22] MEDS ORDERED: DILTIAZEM HCL 25 MG IV ONE (02:19)
[2020-12-22] MEDS ORDERED: Magnesium 1GM/D5W 100ML PREMIX PIGGYBACK IV ONE (03:30)
[2020-12-22] MEDS ORDERED: METOPROLOL TARTRATE INJ 5 MG/5 ML AMPUL IVP SCH (03:30)
[2020-12-22] MEDS: Magnesium 1GM/D5W 100ML PREMIX 100 ML IV SCH ×4 (04:27→10:36)
--- NOTE | 2020-12-22 05:18 | NUR ---
RN NOTE PATIENT IS ON 5L VIA NASAL CANNULA O2:98% CONTINUE TO MONITOR.
--- NOTE | 2020-12-22 07:15 | NUR ---
MACHINED PARTS METAL SPRAYER NOTES RECEIVED PATIENT LETHARGIC , OPENS EYES , ON 5LPM NC SPO2 OF 95% , SR 85 ON BEDSIDE MONITOR , FC DRAINING VIA GRAVITY , R HAND # 20 WITH CARDIZEM @ 5MG/HR , NS @ TKO INFUSING WELL , RFA # 22 PATENT AND INTACT SL , ALL NEEDS ATTENDED , HOB @ 45 , WILL CONTINUE TO MONITOR,
--- NOTE | 2020-12-22 07:25 | NUR ---
RN NOTE PATIENT REMAINS ON LETHARGIC NOT VERBALLY RESPONSIVE ON 5L OXYGEN VIA NASAL CANNULA O2:95% ON CARDIZEM 5MG ENDORSE NEXT COMING SHIFT FOR CONTINUATION OF CARE.
--- NOTE | 2020-12-22 08:00 | NUR ---
HOT METAL CAR OPERATOR NOTES LEXAPRO AND NAMENDA HELD PT IS LETHARGIC , AWARE
[2020-12-22] MEDS: PIPERACILLIN /TAZOBACTAM 3.375 G in IV D5W 100 ML IV SCH ×2 (08:20→15:16)
--- NOTE | 2020-12-22 08:56 | NUR ---
MORTGAGE LOAN INTERVIEWER NOTES NOTIFIED DR RUELAS THAT PT STILL ON LOPRESSOR 5MG Q6 S/P TAE DOMÍNGUEZ , PT ON AMIO 400MG BID , PER MD CONNER TO DC LOPRESSOR , ORDER CARRIED OUT
[2020-12-22] MEDS: NITROGLYCERIN 30 GM TUBE TP SCH ×2 (09:00→21:17)
[2020-12-22] MEDS ORDERED: FUROSEMIDE 20 MG/2 ML VIAL IV ONE (09:00)
[2020-12-22] MEDS: ESCITALOPRAM OXALATE (10 MG) 10 MG TABLET GT SCH (09:00)
[2020-12-22] MEDS: Z GUARD REMEDY 2 OZ OINT TP SCH (09:34)
[2020-12-22] MEDS: MEMANTINE HCL 5 MG TABLET GT SCH (09:35)
[2020-12-22] MEDS: AMIODARONE HCL 200 MG TABLET NG SCH ×2 (09:37→16:19)
[2020-12-22] MEDS: ENOXAPARIN SODIUM 40 MG/0.4 ML DISP.SYRIN SQ SCH (09:38)
--- NOTE | 2020-12-22 12:46 | NUR ---
HOURLY CAREGIVER NOTES VERIFIED WITH DR MARC IF HE WANTS TO KEEP PT NPO , PT HAS NGT FEEDING ON HOLD , PER MD START GT FEEDING , ORDER CARRIED OUT
[2020-12-22] MEDS: JEVITY 1.2 CAL 1,000 ML BOTTLE GT PRN (12:56)
--- NOTE | 2020-12-22 12:56 | NUR ---
NET WPF DEVELOPER NOTES NGT FEEDING OF JEVITY @ 30ML/HR STARTED , WILL TITRATE TOLERATED SET GOAL OF 60ML/HR
--- NOTE | 2020-12-22 20:00 | NUR ---
MASH TUB COOKER OPERATOR MIRACLE Received patient lethargic non verbal open eyes spontaneously not following commands. Dx:Severe Sepsis with acute encephalopathy.SR per sap pi developer.VS stable.Respiration even and unlabored.Maintained on O2 5LNC saturation 94%-96%.Tolerating feeding via R NGT no residual noted.HOB elevated.FC to gravity.NS infusing at TKO to rfa site intact. Turned and repositioned.Continue monitoring.
[2020-12-22] MEDS: QUETIAPINE FUMARATE 25 MG TABLET GT SCH (21:17)
[2020-12-23] VITALS (21 sets, daily range): BP systolic 99–134; BP diastolic 48–76
--- NOTE | 2020-12-23 | NUR ---
RN GASTROENTEROLOGY NOTES Remains confused.VSS.SB 40'S-50'S.Tolerating tube feeding well.No acute distress noted. Turned and repositioned. Addendum: 12/23/20 at 0558 by MOO PETERSON RN Please disregard above notes.Wrong entry.
--- NOTE | 2020-12-23 01:00 | NUR ---
Patient remains lethargic.VS stable.SR 7'S-80'S.Tolerating NGT feeding well.Turned and repositioned.
[2020-12-23 04:31] LABS: BASOPHILS % (AUTO) 0.1 % (0.0-2.0); EOSINOPHILS % (AUTO) 0.2 % (0.0-6.0); LYMPHOCYTES # (AUTO) 0.6 K/uL (0.8-4.8); LYMPHOCYTES % (AUTO) 4.2 % (20.0-44.0); MEAN CORPUSCULAR HGB CONC 35 g/dl (31.0-36.0); MEAN CORPUSCULAR VOLUME 93 fL (82-100); MONOCYTES # (AUTO) 0.8 K/uL (0.1-1.30); MONOCYTES % (AUTO) 5.5 % (2.0-12.0); NEUTROPHILS # (AUTO) 13.9 K/uL (1.8-8.9); PLATELET COUNT (AUTO) 390 K/uL (150-450); RED BLOOD CELL COUNT(AUTO) 2.18 MIL/uL (4.0-5.2); WHITE BLOOD COUNT (AUTO) 15.4 K/uL (4.3-11.0)
[2020-12-23 04:49] LABS: ALANINE AMINOTRANSFERASE 31 U/L (12-78); ALKALINE PHOSPHATASE 67 U/L (46-116); ASPARTATE AMINOTRANSFERASE 30 U/L (15-37); BILIRUBIN,TOTAL 0.7 mg/dL (0.2-1.0); CALCIUM, SERUM 8.1 mg/dL (8.5-10.1); CARBON DIOXIDE 28 mmol/L (21-32); CHLORIDE 102 mmol/L (98-107); CREATININE 0.7 mg/dL (0.6-1.3); GLUCOSE 147 mg/dL (74-106); MAGNESIUM 2.2 mg/dL (1.8-2.4); PHOSPHORUS 2.8 mg/dL (2.5-4.9); POTASSIUM 3.5 mmol/L (3.5-5.1); SODIUM SERUM 138 mmol/L (136-145); TOTAL PROTEIN, SERUM 6.3 g/dL (6.4-8.2); UREA NITROGEN, BLOOD 30 mg/dL (7-18)
[2020-12-23 04:53] LABS: HEMATOCRIT 20 % (33-45)
--- NOTE | 2020-12-23 06:00 | NUR ---
Patient resting in no acute distress.VSS.AM care done.Secretions suctioned PRN.Tube feeding infusing with HOB elevated.No nausea or vomiting noted.No significant changed noted during the night.Turned and repositioned q 2 hrs.off loading pressure points.All due medications administered.All needs met.
[2020-12-23] MEDS: PIPERACILLIN /TAZOBACTAM 3.375 G in IV D5W 100 ML IV SCH ×3 (07:20→15:50)
--- NOTE | 2020-12-23 07:34 | NUR ---
HONEY PROCESSOR NOTES RECEIVED PATIENT LETHARGIC , OPENS EYES , ON 5LPM NC SPO2 OF 97% , SR 87 ON BEDSIDE MONITOR , FC DRAINING VIA GRAVITY , R HAND # 20 WITH NS @ TKO INFUSING WELL , RFA # 22 PATENT AND INTACT SL ,NGT PATENT AND INTACT WITH JEVITY @ 60ML/HR INFUSING WELL WITH NO RESIDUALS NOTED , ALL NEEDS ATTENDED , HOB @ 45 , WILL CONTINUE TO MONITOR,
[2020-12-23] MEDS: AMIODARONE HCL 200 MG TABLET NG SCH ×2 (08:19→16:00)
[2020-12-23] MEDS: NITROGLYCERIN 30 GM TUBE TP SCH ×2 (08:20→22:03)
[2020-12-23] MEDS: MEMANTINE HCL 5 MG TABLET GT SCH (08:20)
[2020-12-23] MEDS: Z GUARD REMEDY 2 OZ OINT TP SCH (08:20)
[2020-12-23] MEDS: ESCITALOPRAM OXALATE (10 MG) 10 MG TABLET GT SCH (08:20)
[2020-12-23] MEDS: ENOXAPARIN SODIUM 40 MG/0.4 ML DISP.SYRIN SQ SCH (08:20)
[2020-12-23 08:29] LABS: HEMATOCRIT 26 % (33-45); MEAN CORPUSCULAR HGB CONC 34 g/dl (31.0-36.0); MEAN CORPUSCULAR VOLUME 92 fL (82-100); PLATELET COUNT (AUTO) 376 K/uL (150-450); RED BLOOD CELL COUNT(AUTO) 2.82 MIL/uL (4.0-5.2); WHITE BLOOD COUNT (AUTO) 16.3 K/uL (4.3-11.0)
[2020-12-23] MEDS: JEVITY 1.2 CAL 1,000 ML BOTTLE GT PRN (11:12)
[2020-12-23] MEDS: ACETAMINOPHEN 650 MG/20.3 ML UDC GT PRN (16:32)
--- NOTE | 2020-12-23 18:33 | NUR ---
BROACH TROUBLE SHOOTER NOTES PATIENT STABLE UPON TRANSFER AWAKE , OPENS EYES , VS STABLE , AFEBRILE, NOT ON ACUTE DISTRESS ,RESPIRATIONS EVEN AND UNLABORED , ON 2LPM NC SPO2 OF 95-97% , ATTACHED TO TELE MONITOR SR 75 , FC DRAINING VIA GRAVITY , R HAND # 20 NS @ TKO INFUSING WELL , RFA # 22 PATENT AND INTACT SL , RIGHT NGT WITH JEVITY @60 ML/HR INFUSING WELL WITH NO RESIDUALS NOTED, ALL NEEDS ATTENDED , HOB @ 45 , REPORT GIVEN TO STEPHANIE FOR CONTINUITY OF CARE .
--- NOTE | 2020-12-23 19:30 | NUR ---
RN OPENING NOTE RECEIVED PATIENT IN BED, EYES CLOSED. PATIENT IS ALERT WITH EYES OPENING WITH TOUCH AND VOICE STIMULI. PATIENT HAS AN NGT PRESENT RUNNING JEVITY AT 60 ML/HR. PATENT, INTACT, AND IN PLACE. PATIENT ALSO HAS A MEDLEY CATHETER DRAINING YELLOW URINE VIA GRAVITY. R HAND 20 G AND RFA 20 G PATENT AND INTACT, TKO RUNNING 10 ML/HR. PATIENT ON 2 L OF O2 OXYGEN SUPPLEMENTATION, BREATHING EVEN AND UNLABORED. SAFETY MEASURES IN PLACE: BED IN LOCKED AND IN LOWEST POSITION, CALL LIGHT WITHIN REACH, SIDE RAILS UP, HOB ELEVATED AT 45 DEGREES. WILL MONITOR PATIENT CLOSELY.
[2020-12-23] MEDS: QUETIAPINE FUMARATE 25 MG TABLET GT SCH (21:53)
[2020-12-23] MEDS ORDERED: NITROGLYCERIN PACKET 1 GM PACKET ONE (22:01)
[2020-12-24] VITALS: BP 106/54
[2020-12-24] MEDS ORDERED: PIPERACILLIN /TAZOBACTAM 3.375 G VIAL IV ONE (00:11)
[2020-12-24] MEDS: PIPERACILLIN /TAZOBACTAM 3.375 G in IV D5W 100 ML IV SCH ×3 (00:15→16:01)
[2020-12-24 04:00] VITALS: BP 123/63
[2020-12-24] MEDS: JEVITY 1.2 CAL 1,000 ML BOTTLE GT PRN (04:48)
[2020-12-24 06:05] LABS: BASOPHILS % (AUTO) 0.2 % (0.0-2.0); EOSINOPHILS % (AUTO) 1.2 % (0.0-6.0); HEMATOCRIT 26 % (33-45); HEMOGLOBIN 8.8 g/dL (11.5-14.8); LYMPHOCYTES # (AUTO) 0.7 K/uL (0.8-4.8); LYMPHOCYTES % (AUTO) 5.5 % (20.0-44.0); MEAN CORPUSCULAR HGB CONC 35 g/dl (31.0-36.0); MEAN CORPUSCULAR VOLUME 93 fL (82-100); MONOCYTES # (AUTO) 0.8 K/uL (0.1-1.30); MONOCYTES % (AUTO) 6.3 % (2.0-12.0); NEUTROPHILS # (AUTO) 10.5 K/uL (1.8-8.9); NEUTROPHILS % (AUTO) 86.8 % (43.0-81.0); PLATELET COUNT (AUTO) 377 K/uL (150-450); RED BLOOD CELL COUNT(AUTO) 2.76 MIL/uL (4.0-5.2); WHITE BLOOD COUNT (AUTO) 12.1 K/uL (4.3-11.0)
[2020-12-24 06:46] LABS: CALCIUM, SERUM 8.1 mg/dL (8.5-10.1); CARBON DIOXIDE 31 mmol/L (21-32); CHLORIDE 102 mmol/L (98-107); CREATININE 0.5 mg/dL (0.6-1.3); GLUCOSE 147 mg/dL (74-106); MAGNESIUM 2.2 mg/dL (1.8-2.4); POTASSIUM 3.3 mmol/L (3.5-5.1); SODIUM SERUM 139 mmol/L (136-145); UREA NITROGEN, BLOOD 32 mg/dL (7-18)
--- NOTE | 2020-12-24 06:57 | NUR ---
RN CLOSING NOTE PATIENT IN BED, REMAINS LETHARGIC. NO SIGNIFICANT CHANGES IN CONDITION. TELE MONITOR READS 70 BPM SR. MEDLEY CATHETER DRAINING YELLOW URINE VIA GRAVITY. TUBE FEEDING CONTINUOUS AT 60 ML/HR VIA RIGHT NARE NGT, TOLERATING WELL. HOB KEPT AT 45 DEGREES. ALL NEEDS MET AND ATTENDED, ALL ORDERS CARRIED OUT. SAFETY MEASURES IMPLEMENTED. WILL ENDORSE TO DAY SHIFT NURSE FOR DIANE.
--- NOTE | 2020-12-24 08:00 | NUR ---
RN OPENING NOTE PT RESTING IN BED ASLEEP. AROUSES TO LIGHT PAIN, OPENS EYES, NONVERBAL. ON 2L NC WITH NO RESPIRATORY DISTRESS PRESENT. UNABLE TO ASSESS ORIENTATION. NO S/S OF PAIN OR NAUSEA PRESENT. ON CONDITIONING COACH. NO EDEMA PRESENT. F/C PRESENT AND DRAINING WITH CLEAR YELLOW FLUID. G/T PRESENT AND FLUSHES WELL. NO RESIDUAL. SKIN ISSUES PRESENT, PICTURES IN CHART, AND WOUND CARE ORDERED. IV PRESENT ON R HAND 20G AND FLUSHES WELL. LABS AND ORDERS REVIEWED. SAFETY MEASURES IN PLACE. SIDE RAILS RAISED. BED LOWERED. CALL LIGHT WITHIN REACH. WILL CONTINUE TO MONITOR.
[2020-12-24] MEDS: ESCITALOPRAM OXALATE (10 MG) 10 MG TABLET GT SCH (08:13)
[2020-12-24] MEDS: MEMANTINE HCL 5 MG TABLET GT SCH (08:13)
[2020-12-24] MEDS: AMIODARONE HCL 200 MG TABLET NG SCH ×2 (08:29→18:02)
[2020-12-24] MEDS: NITROGLYCERIN 30 GM TUBE TP SCH ×2 (08:34→21:23)
[2020-12-24 08:40] VITALS: BP 123/66
[2020-12-24] MEDS: ENOXAPARIN SODIUM 40 MG/0.4 ML DISP.SYRIN SQ SCH (09:04)
[2020-12-24] MEDS: Z GUARD REMEDY 2 OZ OINT TP SCH (09:53)
[2020-12-24] MEDS ORDERED: POTASSIUM CHLORIDE 20 MEQ POWDER PACKET GT ONE (10:00)
[2020-12-24 17:09] VITALS: BP 152/76
--- NOTE | 2020-12-24 19:33 | NUR ---
RN CLOSING NOTE PT RESTING IN BED ASLEEP. AROUSES TO LIGHT PAIN, OPENS EYES, NONVERBAL. ON 2L NC WITH NO RESPIRATORY DISTRESS PRESENT. UNABLE TO ASSESS ORIENTATION. NO S/S OF PAIN OR NAUSEA PRESENT. ON CAPACITOR TESTER. NO EDEMA PRESENT. F/C PRESENT AND DRAINING WITH CLEAR YELLOW FLUID. G/T PRESENT AND FLUSHES WELL. NO RESIDUAL. SKIN ISSUES PRESENT, PICTURES IN CHART, AND WOUND CARE ORDERED. IV PRESENT ON R HAND 20G AND FLUSHES WELL. ROUTINE MEDS GIVEN. LABS AND ORDERS REVIEWED. SAFETY MEASURES IN PLACE. SIDE RAILS RAISED. BED LOWERED. CALL LIGHT WITHIN REACH. REPORT GIVEN TO NIGHT NURSE FOR DIANE.
--- NOTE | 2020-12-24 19:35 | NUR ---
TELERN EYES OPEN, OCC MOANING, REPOSITIONED FOR COMFORT. MEDLEY TO GRAVITY OUTPUT MONITORED. NGT WITH FEEDINGS JEVITY AT 60 CC/HR TOLERATING WELL. HOB TO 45 DEGREES AT ALL TIMES TO PREVENT ASPIRATION. V/S STABLE, SR ON THE MONITOR. KEPT COMFORTABLE, CONTINUED MONITORING.
[2020-12-24 20:00] VITALS: BP 145/76
[2020-12-24 20:34] VITALS: BP 145/76
[2020-12-24] MEDS: QUETIAPINE FUMARATE 25 MG TABLET GT SCH (21:22)
--- NOTE | 2020-12-24 23:00 | NUR ---
TELERN HS CARE STARTED, HAD BM SOFT FORMED STOOLS. POSITIONED FOR COMFORT. NGT FEEDINGS CONTINUED.
[2020-12-25] VITALS: BP 134/72
[2020-12-25] MEDS: PIPERACILLIN /TAZOBACTAM 3.375 G in IV D5W 100 ML IV SCH ×3 (00:05→15:10)
[2020-12-25 04:00] VITALS: BP 158/80
[2020-12-25] MEDS: JEVITY 1.2 CAL 1,000 ML BOTTLE GT PRN ×2 (05:49→21:56)
--- NOTE | 2020-12-25 06:45 | NUR ---
TELERN AM CARE DONE, NGT FEEDINGS RESTARTED. REMAINS SR ON THE MONITOR. POSITIONED FOR COMFORT.
[2020-12-25 07:11] LABS: CALCIUM, SERUM 8.4 mg/dL (8.5-10.1); CARBON DIOXIDE 28 mmol/L (21-32); CHLORIDE 102 mmol/L (98-107); CREATININE 0.5 mg/dL (0.6-1.3); GLUCOSE 111 mg/dL (74-106); POTASSIUM 4.2 mmol/L (3.5-5.1); SODIUM SERUM 138 mmol/L (136-145); UREA NITROGEN, BLOOD 24 mg/dL (7-18)
--- NOTE | 2020-12-25 07:23 | NUR ---
PRINCIPAL ANDROID DEVELOPER OPENING NOTES RECEIVED PATIENT AWAKE IN BED IN NO ACUTE SIGN SOF DISTRESS. HOB ELEVATED. PATIENT OPEN EYES AND RESPONSIVE TO TACTILE STIMULI. NO S/S OF PAIN LIKE GRIMACING OR MOANING AT THIS TIME. ON 02 VIA N/C AT 2LPM, BREATHING EVEN AND UNLABORED. TELE MONITOR SHOWS CURRENT READING OF NSR WITH HR ON THE 80'S. NGT ON RIGHT NARE IN PLACE WITH FEEDING OF JEVITY 1.2 @ 60ML/HR RUNNING, TOLERATING WELL. ASPIRATION PRECAUTIONS MAINTAINED. MEDLEY CATHETER IN PLACE DRAINING CLEAR YELLOW URINE VIA GRAVITY. PIV'S ON RIGHT HAND 20G AND RFA 22G BOTH PATENT AND INTACT. SAFETY MEASURES IN PLACE: BED LOCKED AND IN LOWEST POSITION, CALL LIGHT WITHIN REACH, SIDE RAILS UP X3, HOB KEPT ELEVATED. WILL MONITOR PATIENT CLOSELY.
[2020-12-25 07:56] VITALS: BP 157/73
[2020-12-25] MEDS: NITROGLYCERIN 30 GM TUBE TP SCH ×2 (08:31→21:43)
[2020-12-25] MEDS: AMIODARONE HCL 200 MG TABLET NG SCH ×2 (08:32→16:11)
[2020-12-25] MEDS: Z GUARD REMEDY 2 OZ OINT TP SCH (08:32)
[2020-12-25] MEDS: ESCITALOPRAM OXALATE (10 MG) 10 MG TABLET GT SCH (08:32)
[2020-12-25] MEDS: MEMANTINE HCL 5 MG TABLET GT SCH (08:32)
[2020-12-25] MEDS: ENOXAPARIN SODIUM 40 MG/0.4 ML DISP.SYRIN SQ SCH (08:34)
[2020-12-25] MEDS: VALSARTAN 80 MG TABLET PO SCH (09:09)
--- NOTE | 2020-12-25 14:33 | NUR ---
RN NOTES PT SEEN BY DUNIA PIERRE WITH ORDER TO [employer] SUPPLEMENTAL 02 WITH GOAL OF SP02 >90%. PT PLACED ON ROOM AIR, TOLERATING WELL WITH SP02 OF 95-97% NOTED AT THIS TIME WITH NO ACUTE RESPIRATORY DISTRESS NOTED. WILL CONTINUE TO MONITOR.
[2020-12-25 16:31] VITALS: BP 145/74
--- NOTE | 2020-12-25 18:38 | NUR ---
MS RN CLOSING NOTES PATIENT IN BED LYING AT SEMI-TIPTON'S POSITION. PATIENT OPEN HER EYES AND RESPONSIVE TO TACTILE STIMULI. ON ROOM AIR, TOLERATING WELL WITH NO SOB NOTED, SP02 95-97%. IV ACCESS ON RFA G#22 PATENT, INTACT AND FLUSHES WELL. NG-TUBE ON RIGHT NARE IN PLACE WITH FEEDING OF JEVITY 1.2 @ 60ML/HR IN PROGRESS, TOLERATING WELL. ASPIRATION PRECAUTIONS MAINTAINED. MEDLEY CATHETER IN PLACE AND ACTIVELY DRAINING CLEAR YELLOW URINE TO BEDSIDE URINARY BAG, MEDLEY CARE DONE. PT TURNED AND REPOSITIONED Q 2HRS. ALL NEEDS AND CARE PROVIDED WELL. SAFETY MEASURES KEPT IN PLACE: BED LOCKED AND IN LOWEST POSITION, CALL LIGHT WITHIN REACH, SIDE RAILS UP X3, HOB KEPT ELEVATED AT ALL TIMES. WILL ENDORSE DIANE TO SHREDDER PICKER NURSE.
--- NOTE | 2020-12-25 19:35 | NUR ---
MS RN OPENING NOTES RECEIVED PT IN BED, AWAKE, NONVERBAL, OPENS EYES TO STIMULI. NO S/S OF PAIN OR DISCOMFORT AT THIS TIME. BREATHING EVEN/UNLABORED. ON ROOM AIR AND TOLERATING WELL. NGT ON R-NARE IN PLACE, INTACT AND PATENT. ONGOING FEEDING OF JEVITY 1.2 @60ML/HR AND TOLERATING WELL. ASPIRATION PRECAUTIONS MAINTAINED. FC IN PLACE, DRAINING CLEAR YELLOW URINE. PT IN NO ACUTE DISTRESS. SAFETY MEASURES IN PLACE, BED IN LOWEST LOCKED POSITION, KEPT HOB @30-45 DEGREES, S/R UP X2, CALL LIGHT WITHIN REACH. WILL CONTINUE TO MONITOR.
[2020-12-25 20:00] VITALS: BP 139/70
[2020-12-25] MEDS: QUETIAPINE FUMARATE 25 MG TABLET GT SCH (21:42)
[2020-12-26] MEDS: PIPERACILLIN /TAZOBACTAM 3.375 G in IV D5W 100 ML IV SCH ×4 (00:23→23:20)
--- NOTE | 2020-12-26 06:43 | NUR ---
MS RN CLOSING NOTES PT IN BED, EASILY AWAKENS TO STIMULI. NONVERBAL, RESPONDS BY OPENING EYES. NO S/S OF PAIN OR DISCOMFORT AT THIS TIME. BREATHING EVEN/UNLABORED. ON ROOM AIR AND TOLERATING WELL. NGT ON R-NARE IN PLACE, INTACT AND PATENT. ONGOING FEEDING OF JEVITY 1.2 @60ML/HR AND TOLERATING WELL. ASPIRATION PRECAUTIONS MAINTAINED. FC IN PLACE, DRAINING CLEAR YELLOW URINE. PT IN NO ACUTE DISTRESS. SAFETY MEASURES MAINTAINED, BED IN LOWEST LOCKED POSITION, KEPT HOB @30-45 DEGREES, S/R UP X2, CALL LIGHT WITHIN REACH.
--- NOTE | 2020-12-26 07:40 | NUR ---
MS RN OPENING NOTES RECEIVED PATIENT ASLEEP IN BED, EASY TO AROUSE. ALERT AND ORIENTED X 1, NOT ABLE TO FOLLOW COMMANDS. NO SIGNS OR SYMPTOMS OF DISTRESS NOTED. NO SOB. BREATHING IS EVEN AND UNLABORED. PATIENT TOLERATING WELL ON ROOM AIR. FC PATENT AND INTACT WITH DRAINING WELL WITH YELLOW, CLEAR URINE. IV ACCESS LARM#20 PATENT, INTACT AND FLUSHING WELL. TOLERATING WELL ONGOING G-TUBE FEEDING JEVITY 1.2 @60 MLS/ HR. ASPIRATION AND UNIVERSAL SAFETY MEASURES IN PLACE WITH BED AT LOW POSITION, SIDE RAILS UP X2. CALL LIGHT IS WITHIN REACH. WILL CONTINUE TO MONITOR PATIENT THROUGHOUT SHIFT.
[2020-12-26 08:00] VITALS: BP 152/79
[2020-12-26] MEDS: AMIODARONE HCL 200 MG TABLET NG SCH ×2 (08:59→16:12)
[2020-12-26] MEDS: ESCITALOPRAM OXALATE (10 MG) 10 MG TABLET GT SCH (08:59)
[2020-12-26] MEDS: ENOXAPARIN SODIUM 40 MG/0.4 ML DISP.SYRIN SQ SCH (08:59)
[2020-12-26] MEDS: VALSARTAN 80 MG TABLET PO SCH (09:00)
[2020-12-26] MEDS: MEMANTINE HCL 5 MG TABLET GT SCH (09:00)
[2020-12-26] MEDS: Z GUARD REMEDY 2 OZ OINT TP SCH (09:03)
[2020-12-26] MEDS: NITROGLYCERIN 30 GM TUBE TP SCH ×2 (09:14→21:30)
[2020-12-26 10:05] LABS: BASOPHILS % (AUTO) 0.4 % (0.0-2.0); EOSINOPHILS % (AUTO) 1.3 % (0.0-6.0); HEMATOCRIT 28 % (33-45); HEMOGLOBIN 9.6 g/dL (11.5-14.8); LYMPHOCYTES # (AUTO) 0.9 K/uL (0.8-4.8); LYMPHOCYTES % (AUTO) 9.4 % (20.0-44.0); MEAN CORPUSCULAR HGB CONC 34 g/dl (31.0-36.0); MEAN CORPUSCULAR VOLUME 93 fL (82-100); MONOCYTES # (AUTO) 0.9 K/uL (0.1-1.30); MONOCYTES % (AUTO) 9.1 % (2.0-12.0); NEUTROPHILS % (AUTO) 79.8 % (43.0-81.0); PLATELET COUNT (AUTO) 463 K/uL (150-450); RED BLOOD CELL COUNT(AUTO) 3.03 MIL/uL (4.0-5.2)
[2020-12-26 10:46] LABS: CALCIUM, SERUM 8.3 mg/dL (8.5-10.1); CARBON DIOXIDE 25 mmol/L (21-32); CHLORIDE 101 mmol/L (98-107); CREATININE 0.5 mg/dL (0.6-1.3); GLUCOSE 164 mg/dL (74-106); MAGNESIUM 2.2 mg/dL (1.8-2.4); PHOSPHORUS 3.2 mg/dL (2.5-4.9); POTASSIUM 4.6 mmol/L (3.5-5.1); SODIUM SERUM 135 mmol/L (136-145); UREA NITROGEN, BLOOD 21 mg/dL (7-18)
[2020-12-26 16:00] VITALS: BP 150/81
[2020-12-26] MEDS: JEVITY 1.2 CAL 1,000 ML BOTTLE GT PRN (17:30)
--- NOTE | 2020-12-26 19:20 | NUR ---
MS RN OPENING NOTES PT IN BED, AWAKE, NONVERBAL, RESPONDS BY OPENING EYES. NO S/S OF PAIN OR DISCOMFORT AT THIS TIME. NO SOB. ON ROOM AIR AND TOLERATING WELL. IV ACCESS ON R-FA #22G INTACT/PATENT AND FLUSHES WELL. NGT ON R-NARE INTACT AND PATENT. ONGOING FEEDING OF JEVITY 1.2 @60ML/HR AND TOLERATING WELL. ASPIRATION PRECAUTIONS MAINTAINED. FC IN PLACE, DRAINING CLEAR YELLOW URINE. PT IN NO ACUTE DISTRESS. SAFETY MEASURES IN PLACE, BED IN LOWEST LOCKED POSITION, KEPT HOB @30-45 DEGREES, S/R UP X2, CALL LIGHT WITHIN REACH. WILL CONTINUE TO MONITOR.
[2020-12-26 20:00] VITALS: BP 161/79
[2020-12-26] MEDS: QUETIAPINE FUMARATE 25 MG TABLET GT SCH (22:54)
[2020-12-27 06:09] LABS: BASOPHILS % (AUTO) 0.3 % (0.0-2.0); HEMATOCRIT 27 % (33-45); HEMOGLOBIN 9.4 g/dL (11.5-14.8); LYMPHOCYTES % (AUTO) 10.9 % (20.0-44.0); MEAN CORPUSCULAR HGB CONC 35 g/dl (31.0-36.0); MEAN CORPUSCULAR VOLUME 92 fL (82-100); MONOCYTES # (AUTO) 0.8 K/uL (0.1-1.30); MONOCYTES % (AUTO) 9.7 % (2.0-12.0); NEUTROPHILS # (AUTO) 6.7 K/uL (1.8-8.9); NEUTROPHILS % (AUTO) 77.1 % (43.0-81.0); PLATELET COUNT (AUTO) 456 K/uL (150-450); RED BLOOD CELL COUNT(AUTO) 2.94 MIL/uL (4.0-5.2); WHITE BLOOD COUNT (AUTO) 8.7 K/uL (4.3-11.0)
--- NOTE | 2020-12-27 06:48 | NUR ---
MS RN CLOSING NOTES PT RESTING IN BED, NONVERBAL, RESPONDS BY OPENING EYES. NO S/S OF PAIN OR DISCOMFORT NOTED. RESPIRATIONS EVEN AND UNLABORED. ON ROOM AIR AND TOLERATING WELL. IV ACCESS ON R-FA #22G INTACT/PATENT AND FLUSHES WELL. NGT ON R-NARE INTACT AND PATENT. ONGOING FEEDING OF JEVITY 1.2 @60ML/HR AND TOLERATING WELL. NO N/V DURING THE SHIFT. ASPIRATION PRECAUTIONS MAINTAINED. FC IN PLACE, DRAINING CLEAR YELLOW URINE. PT IN NO ACUTE DISTRESS. SAFETY MEASURES MAINTAINED, BED IN LOWEST LOCKED POSITION, KEPT HOB @30-45 DEGREES, S/R UP X2, CALL LIGHT WITHIN REACH.
[2020-12-27 06:49] LABS: CALCIUM, SERUM 8.1 mg/dL (8.5-10.1); CARBON DIOXIDE 24 mmol/L (21-32); CHLORIDE 100 mmol/L (98-107); CREATININE 0.5 mg/dL (0.6-1.3); GLUCOSE 226 mg/dL (74-106); POTASSIUM 4.8 mmol/L (3.5-5.1); SODIUM SERUM 132 mmol/L (136-145); UREA NITROGEN, BLOOD 20 mg/dL (7-18)
--- NOTE | 2020-12-27 07:08 | NUR ---
MS RN OPENING NOTES RECEIVED PT RESTING IN BED, AWAKE, NONVERBAL, RESPONDS BY OPENING EYES. NO S/S OF PAIN OR DISCOMFORT AT THIS TIME. NO SOB. BREATHING EVENLY AND NONLABORED ON ROOM AIR AND TOLERATING WELL. IV ACCESS ON L HAND #22G INTACT/PATENT AND FLUSHES WELL. NGT ON R-NARE INTACT AND PATENT. ONGOING FEEDING OF JEVITY 1.2 @60ML/HR AND TOLERATING WELL. ASPIRATION PRECAUTIONS MAINTAINED. FC IN PLACE, DRAINING CLEAR YELLOW URINE. PT IN NO ACUTE DISTRESS. SAFETY MEASURES IN PLACE, BED IN LOWEST LOCKED POSITION, KEPT HOB @30-45 DEGREES, S/R UP X2, CALL LIGHT WITHIN REACH. WILL CONTINUE TO MONITOR.
[2020-12-27] MEDS: PIPERACILLIN /TAZOBACTAM 3.375 G in IV D5W 100 ML IV SCH ×3 (07:37→23:27)
[2020-12-27 08:00] VITALS: BP 142/74
[2020-12-27] MEDS: MEMANTINE HCL 5 MG TABLET GT SCH (08:32)
[2020-12-27] MEDS: AMIODARONE HCL 200 MG TABLET NG SCH ×2 (08:32→16:04)
[2020-12-27] MEDS: VALSARTAN 80 MG TABLET PO SCH (08:33)
[2020-12-27] MEDS: ESCITALOPRAM OXALATE (10 MG) 10 MG TABLET GT SCH (08:34)
[2020-12-27] MEDS: ENOXAPARIN SODIUM 40 MG/0.4 ML DISP.SYRIN SQ SCH (08:34)
[2020-12-27] MEDS: NITROGLYCERIN 30 GM TUBE TP SCH ×2 (08:36→21:41)
[2020-12-27] MEDS: Z GUARD REMEDY 2 OZ OINT TP SCH (08:36)
--- NOTE | 2020-12-27 08:50 | NUR ---
WOUND CARE CONSULT: PT SEEN FOR RT PLANTAR FOOT INTACT BLISTER. NO ERYTHEMA, DRAINAGE OR TENDERNESS NOTED. PT HAS CONTRACTED LOWER EXTREMITIES. NO DRAINAGE OR ERYTHEMA NOTED TO LEFT LATERAL FOOT/ANKLE INTACT DEEP TISSUE INJURIES (PRESENT ON ADMISSION). DISCUSSED SKIN PROTECTION WITH NURSING STAFF AND WITH DR MARC. PT IS ON [facility]ON ISOFLEX LOW AIRLOSS BED. IN AGREEMENT WITH PLAN OF CARE. Addendum: 12/27/20 at 0852 by EVERTON GONZALEZ WND[facility] Amended: Links added.
--- NOTE | 2020-12-27 08:58 | NUR ---
RN NOTE PATIENT SEEN BY WOUND CARE NURSE, AWARE OF HEEL BLISTER. KEEP OFF LOAD AND MEPILEX. WILL CONTINUE TO MONITOR
[2020-12-27 16:00] VITALS: BP 153/89
--- NOTE | 2020-12-27 18:29 | NUR ---
MS RN CLOSING NOTES PATIENT IN BED LYING AT SEMI-TIPTON'S POSITION. PATIENT OPEN HER EYES AND RESPONSIVE TO TACTILE STIMULI. ON ROOM AIR, TOLERATING WELL WITH NO SOB NOTED, SP02 95-97%. IV ACCESS ON L HAND G#22 PATENT, INTACT AND FLUSHES WELL. NG-TUBE ON RIGHT NARE IN PLACE WITH FEEDING OF JEVITY 1.2 @ 60ML/HR IN PROGRESS, TOLERATING WELL. ASPIRATION PRECAUTIONS MAINTAINED. MEDLEY CATHETER IN PLACE AND ACTIVELY DRAINING CLEAR YELLOW URINE TO BEDSIDE URINARY BAG, MEDLEY CARE DONE. PT TURNED AND REPOSITIONED Q 2HRS. ALL NEEDS AND CARE PROVIDED WELL. SAFETY MEASURES KEPT IN PLACE: BED LOCKED AND IN LOWEST POSITION, CALL LIGHT WITHIN REACH, SIDE RAILS UP X3, HOB KEPT ELEVATED AT ALL TIMES. WILL ENDORSE TO ONCOMING SHIFT
--- NOTE | 2020-12-27 19:20 | NUR ---
MS/RN OPENING NOTE RECEIVED PATIENT RESTING IN BED. AWAKE, ALERT AND ORIENTED X 1. NO S/SX OF PAIN NOTED AT THIS TIME. CONTINUES ON ROOM AIR WITH NO S/SX OF RESPIRATORY DISTRESS NOTED. IV ACCESS TO LEFT HAND #22G INTACT, PATENT AND SALINE LOCKED. CONTINUES ON IV ABX. NGT TO RIGHT NARE - CONTINUES ON TF JEVITY 1.2 @ 60ML/HR. PATIENT TOLERATING FEED WELL. NO RESIDUAL NOTED AT THIS TIME. MEDLEY CATHETER IN PLACE DRAINING TO GRAVITY. CALL LIGHT WITHIN REACH. ASPIRATION, FALL AND SAFETY PRECAUTIONS MAINTAINED. WILL CONTINUE TO MONITOR.
[2020-12-27 20:00] VITALS: BP 147/73
[2020-12-27] MEDS: QUETIAPINE FUMARATE 25 MG TABLET GT SCH (21:41)
[2020-12-28] MEDS: JEVITY 1.2 CAL 1,000 ML BOTTLE GT PRN (04:37)
[2020-12-28] MEDS: PIPERACILLIN /TAZOBACTAM 3.375 G in IV D5W 100 ML IV SCH ×2 (07:52→15:32)
[2020-12-28 08:00] VITALS: BP 133/68
[2020-12-28] MEDS: VALSARTAN 80 MG TABLET PO SCH (08:30)
[2020-12-28] MEDS: ENOXAPARIN SODIUM 40 MG/0.4 ML DISP.SYRIN SQ SCH (08:30)
[2020-12-28] MEDS: MEMANTINE HCL 5 MG TABLET GT SCH (08:31)
[2020-12-28] MEDS: ESCITALOPRAM OXALATE (10 MG) 10 MG TABLET GT SCH (08:31)
[2020-12-28] MEDS: AMIODARONE HCL 200 MG TABLET NG SCH ×2 (08:31→16:05)
[2020-12-28] MEDS: NITROGLYCERIN 30 GM TUBE TP SCH ×2 (08:32→21:13)
[2020-12-28] MEDS: Z GUARD REMEDY 2 OZ OINT TP SCH (08:35)
--- NOTE | 2020-12-28 09:20 | NUR ---
RN NOTE PATIENTS NGT WAS NOTED TO HAVE MOVED, TAPE DISCONNECTED, RETAPED, MD NOTIFIED WITH NEW ORDER FOR CHEST XRAY TO CONFIRM PLACEMENT. WILL CONTINUE TO MONITOR
--- NOTE | 2020-12-28 10:00 | NUR ---
RN NOTE XRAY CONFIRMED PLACEMENT RESTARTED GTUBE FEEDING
[2020-12-28 16:00] VITALS: BP 123/66
--- NOTE | 2020-12-28 16:30 | NUR ---
RN NOTE IV ACCESS NOTED TO BE PULLED OUT, NO BLEEDING NOTED. REINSERTED IV ON LEFT HAND #22 GAUGE, PATENT INTACT, FLUSHES WELL. WILL CONTINUE TO MONITOR
--- NOTE | 2020-12-28 19:20 | NUR ---
MS/RN OPENING NOTE RECEIVED PATIENT RESTING IN BED. ALERT AND ORIENTED X 1. NO S/SX OF PAIN NOTED AT THIS TIME. CONTINUES ON ROOM AIR WITH NO S/SX OF RESPIRATORY DISTRESS NOTED. IV ACCESS TO LEFT HAND #22G INTACT AND PATENT. CONTINUES ON IV ABX. NGT TO RIGHT NARE WITH TF JEVITY 1.2 RUNNING AT 60ML/HR. NO RESIDUAL NOTED AT THIS TIME. MEDLEY CATHETER IN PLACE DRAINING TO GRAVITY. CALL LIGHT WITHIN REACH. ASPIRATION, FALL AND SAFETY PRECAUTIONS MAINTAINED. WILL CONTINUE TO MONITOR.
[2020-12-28 20:58] VITALS: BP 137/72
[2020-12-28] MEDS: QUETIAPINE FUMARATE 25 MG TABLET GT SCH (21:14)
[2020-12-29] MEDS: JEVITY 1.2 CAL 1,000 ML BOTTLE GT PRN (00:51)
[2020-12-29 06:15] LABS: BASOPHILS % (AUTO) 0.4 % (0.0-2.0); EOSINOPHILS % (AUTO) 1.7 % (0.0-6.0); HEMATOCRIT 28 % (33-45); HEMOGLOBIN 9.9 g/dL (11.5-14.8); LYMPHOCYTES # (AUTO) 1.3 K/uL (0.8-4.8); LYMPHOCYTES % (AUTO) 12.4 % (20.0-44.0); MEAN CORPUSCULAR HGB CONC 35 g/dl (31.0-36.0); MEAN CORPUSCULAR VOLUME 92 fL (82-100); MONOCYTES % (AUTO) 9.4 % (2.0-12.0); NEUTROPHILS # (AUTO) 7.9 K/uL (1.8-8.9); NEUTROPHILS % (AUTO) 76.1 % (43.0-81.0); PLATELET COUNT (AUTO) 604 K/uL (150-450); RED BLOOD CELL COUNT(AUTO) 3.05 MIL/uL (4.0-5.2); WHITE BLOOD COUNT (AUTO) 10.3 K/uL (4.3-11.0)
--- NOTE | 2020-12-29 06:30 | NUR ---
MS/RN CLOSING NOTE PATIENT CURRENTLY RESTING IN BED. ALERT AND ORIENTED X 1. NO S/SX OF PAIN NOTED AT THIS TIME. CONTINUES ON ROOM AIR WITH NO S/SX OF RESPIRATORY DISTRESS NOTED. IV ACCESS TO LEFT HAND #22G INTACT AND PATENT. CONTINUES ON IV ABX. NGT TO RIGHT NARE WITH TF JEVITY 1.2 RUNNING AT 60ML/HR. MEDLEY CATHETER IN PLACE DRAINING TO GRAVITY. CALL LIGHT WITHIN REACH. ASPIRATION, FALL AND SAFETY PRECAUTIONS MAINTAINED. WILL ENDORSE PLAN OF CARE TO ONCOMING SHIFT.
[2020-12-29 06:44] LABS: CALCIUM, SERUM 8.4 mg/dL (8.5-10.1); CREATININE 0.6 mg/dL (0.6-1.3); MAGNESIUM 2.3 mg/dL (1.8-2.4); POTASSIUM 4.9 mmol/L (3.5-5.1)
[2020-12-29 08:00] VITALS: BP 108/48
[2020-12-29] MEDS: ESCITALOPRAM OXALATE (10 MG) 10 MG TABLET GT SCH (08:06)
[2020-12-29] MEDS: MEMANTINE HCL 5 MG TABLET GT SCH (08:06)
[2020-12-29] MEDS: VALSARTAN 80 MG TABLET PO SCH (08:07)
[2020-12-29] MEDS: AMIODARONE HCL 200 MG TABLET NG SCH ×2 (08:07→16:33)
[2020-12-29] MEDS: ENOXAPARIN SODIUM 40 MG/0.4 ML DISP.SYRIN SQ SCH (08:08)
[2020-12-29] MEDS: NITROGLYCERIN 30 GM TUBE TP SCH ×2 (08:08→21:43)
[2020-12-29] MEDS: Z GUARD REMEDY 2 OZ OINT TP SCH (08:09)
[2020-12-29 10:24] LABS: LYMPHOCYTES % (MANUAL) 16 % (16-48); MONOCYTES % (MANUAL) 8 % (0-11.0); NEUTROPHILS % (MANUAL) 76 (42-76)
[2020-12-29] MEDS ORDERED: IV D5/ 0.9% NACL 1,000 ML IV ONE (13:00)
[2020-12-29 16:00] VITALS: BP 111/60
--- NOTE | 2020-12-29 19:18 | NUR ---
MS RN OPENING NOTES RECEIVED PT RESTING IN BED, IN SEMI-TIPTON'S POSITION. RESPONDS BY OPENING EYES, DOES NOT VERBALIZE. NO S/S OF PAIN OR DISCOMFORT NOTED. IV ACCESS ON LH #22G INTACT/PATENT AND FLUSHES WELL. MEDLEY CATH IN PLACE, DRAINING CLEAR YELLOW URINE. PT IN NO ACUTE DISTRESS. POSITIONED FOR COMFORT IN BED. SAFETY MEASURES IN PLACE, BED IN LOWEST LOCKED POSITION, S/R UP X2, CALL LIGHT WITHIN EASY REACH. WILL CONTINUE TO MONITOR.
[2020-12-29 20:00] VITALS: BP 108/58
[2020-12-29] MEDS: QUETIAPINE FUMARATE 25 MG TABLET GT SCH (21:30)
--- NOTE | 2020-12-30 06:51 | NUR ---
MS RN CLOSING NOTES PT RESTING IN BED, OPENS EYES TO STIMULI. NONVERBAL. NO S/S OF PAIN OR DISCOMFORT NOTED. ON ROOM AIR AND TOLERATING WELL. NO SOB. IV SITE ON LH#22 INTACT/PATENT. FC INTACT AND DRAINING WELL WITH YELLOW COLORED URINE. KEPT PT CLEAN AND DRY. NO ACUTE DISTRESS NOTED. SAFETY MEASURES MAINTAINED, BED IN LOWEST LOCKED POSITION, S/R UP X2, CALL LIGHT AND TABLE WITHIN REACH.
[2020-12-30 08:00] VITALS: BP 141/81
--- NOTE | 2020-12-30 09:30 | NUR ---
Opening notes: Received pt. asleep in bed, no sign of distress noted, breathing is even and non labored. Pt. ate breakfast with the assistance of the staff, meds crushed and given with aspiration precaution. Morning care rendered and will continue to monitor for safety.
[2020-12-30] MEDS: ESCITALOPRAM OXALATE (10 MG) 10 MG TABLET GT SCH (09:34)
[2020-12-30] MEDS: MEMANTINE HCL 5 MG TABLET GT SCH (09:34)
[2020-12-30] MEDS: VALSARTAN 80 MG TABLET PO SCH (09:34)
[2020-12-30] MEDS: AMIODARONE HCL 200 MG TABLET NG SCH ×2 (09:38→17:55)
[2020-12-30] MEDS: ENOXAPARIN SODIUM 40 MG/0.4 ML DISP.SYRIN SQ SCH (09:38)
[2020-12-30] MEDS: NITROGLYCERIN 30 GM TUBE TP SCH (09:40)
[2020-12-30] MEDS: Z GUARD REMEDY 2 OZ OINT TP SCH (10:01)
--- NOTE | 2020-12-30 15:44 | NUR ---
Funmilayo Wagoner with an order to d/c pt. with hospice care. Pt. is for discharge with edwards catheter. Pt. without distress, pictures taken for skin issues.
[2020-12-30 16:00] VITALS: BP 136/70
[2020-12-30 17:55] VITALS: BP 136/70
--- NOTE | 2020-12-30 18:20 | NUR ---
Pt. left the unit via ambulance and transported via a gurney. Pt. left without distress and with edwards catheter
== END 2020-12-30 18:20 | disposition hospice, inpatient (51) | DRG 871 ==
LOC: ER 15:52 → TELE 18:22 → MED 18:48 → ICU 12-21 23:53 → MED 12-23 18:50 → TELE 12-23 19:58 → MED 12-25 08:45
PROVIDERS: ADMIT Legal Medicine; ATTEND Legal Medicine
DX: A41.9 Sepsis, unspecified organism (principal); J69.0 Pneumonitis due to inhalation of food and vomit; G93.41 Metabolic encephalopathy; J96.01 Acute respiratory failure with hypoxia; D68.59 Other primary thrombophilia; E44.0 Moderate protein-calorie malnutrition; R65.20 Severe sepsis without septic shock; E86.0 Dehydration; F02.80 Dementia in other diseases classified elsewhere, unspecified severity, without behavioral disturbance, psychotic disturbance, mood disturbance, and anxiety; G30.9 Alzheimer's disease, unspecified; I10 Essential (primary) hypertension; I25.10 Atherosclerotic heart disease of native coronary artery without angina pectoris; R13.10 Dysphagia, unspecified; E11.9 Type 2 diabetes mellitus without complications; E78.00 Pure hypercholesterolemia, unspecified; M19.90 Unspecified osteoarthritis, unspecified site; E20.9 Hypoparathyroidism, unspecified; E78.5 Hyperlipidemia, unspecified; Z79.899 Other long term (current) drug therapy; D64.9 Anemia, unspecified; I70.0 Atherosclerosis of aorta; F41.9 Anxiety disorder, unspecified; F32.9 Major depressive disorder, single episode, unspecified; I48.91 Unspecified atrial fibrillation; F09 Unspecified mental disorder due to known physiological condition; M24.411 Recurrent dislocation, right shoulder
CPT/HCPCS: 31720; 36415; 36600; 70450-TC; 71045-TC; 74018; 80048-TC; 80053-TC; 80076-TC; 81001; 82962-TC; 83605-TC; 83735-TC; 84100-TC; 84443-TC; 84484-TC; 85025-TC; 85027-TC; 85378-TC; 85730-TC; 87040-TC; 87081-TC; 87086-TC; 92521; 92526; 93307-TC; A4624; C9803; G0378; J0696; J1650; J1940; J2543; J3420; J3475; J3490; J7030; J7042; J7050; J7060